=== PATIENT | female | born 1965 | race Caucasian/White ===

== ENCOUNTER 2017-01-27 17:03 | Inpatient (IN) | payer BC ==
[2017-01-27 17:07] VITALS: BMI 37.8
--- NOTE | 2017-01-27 17:47 | PDOC ---
History of Present Illness - General Chief Complaint: Pain, Acute Stated Complaint: ABD PAIN Time Seen by Provider: 01/27/17 17:28 Past History - Past Medical History Allergies/Adverse Reactions: Allergies Allergy/AdvReac Type Severity Reaction Status Date / Time No Known Allergies Allergy Verified 01/27/17 17:04 Cardiac Disorders: Yes (mvp) Thyroid Disease: Yes (hypo) - Surgical History Cholecystectomy: Yes - Psycho/Social/Smoking Cessation Hx Anxiety: No Suicidal Ideation: No Smoking History: Never smoked Have you smoked in the past 12 months: No Information on smoking cessation initiated: No Hx Alcohol Use: No Drug/Substance Use Hx: No Substance Use Type: None *Physical Exam - Vital Signs Last Vital Signs Temp Pulse Resp BP Pulse Ox 97.6 F 82 18 159/77 100 01/27/17 17:04 01/27/17 17:04 01/27/17 17:04 01/27/17 17:04 01/27/17 17:04
--- NOTE | 2017-01-27 17:48 | PDOC ---
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 Her pain is waxing and waning, nonmigrating, ranked 8/10 in intensity. Her pain initially radiated to the back but is now localized to the periumbilical region. She states her pain subsided over the weekend, but today became worse, prompting her to come to the ED for evaluation. No nausea, vomiting, or diarrhea. Bowel movements are normal. No fever or chills. No chest pain or shortness of breath. PCP: Dr. Alberto Chanel She was scheduled for an abdominal US tomorrow morning. <Emerita Tuttle - Last Filed: 01/27/17 21:03> <My Morejon - Last Filed: 01/27/17 21:55> - General Chief Complaint: Pain, Acute Stated Complaint: ABD PAIN Time Seen by Provider: 01/27/17 17:28 Past History <Emerita Tuttle - Last Filed: 01/27/17 21:03> - Past Medical History Cardiac Disorders: Yes (mvp) Thyroid Disease: Yes (hypo) - Surgical History Cholecystectomy: Yes - Psycho/Social/Smoking Cessation Hx Anxiety: No Suicidal Ideation: No Smoking History: Never smoked Have you smoked in the past 12 months: No Information on smoking cessation initiated: No Hx Alcohol Use: No Drug/Substance Use Hx: No Substance Use Type: None <My Morejon - Last Filed: 01/27/17 21:55> - Past Medical History Allergies/Adverse Reactions: Allergies Allergy/AdvReac Type Severity Reaction Status Date / Time No Known Allergies Allergy Verified 01/27/17 17:04 Home Medications: Ambulatory Orders Atenolol [Tenormin -] 25 mg PO DAILY 01/27/17 Levothyroxine [Synthroid -] 112 mcg PO DAILY 01/27/17 Review of Systems - Review of Systems Able to Perform ROS?: Yes Comments:: 01/27/17 18:20 GENERAL/CONSTITUTIONAL: No fever or chills. No weakness. HEAD, EYES, EARS, NOSE AND THROAT: No change in vision. No ear pain or discharge. No sore throat CARDIOVASCULAR: No chest pain or shortness of breath. RESPIRATORY: No cough, wheezing, or hemoptysis. GASTROINTESTINAL: +abdominal pain. No nausea, vomiting, diarrhea or constipation. GENITOURINARY: No dysuria, frequency, or change in urination. MUSCULOSKELETAL: No joint or muscle swelling or pain. No neck or back pain. SKIN: No rash NEUROLOGIC: No headache, vertigo, loss of consciousness, or change in strength/ sensation. ENDOCRINE: No increased thirst. No abnormal weight change. HEMATOLOGIC/LYMPHATIC: No anemia, easy bleeding, or history of blood clots. ALLERGIC/IMMUNOLOGIC: No hives or skin allergy. <Emerita Tuttle - Last Filed: 01/27/17 21:03> *Physical Exam - Vital Signs Last Vital Signs Temp Pulse Resp BP Pulse Ox 97.6 F 82 18 159/77 100 01/27/17 17:04 01/27/17 17:04 01/27/17 17:04 01/27/17 17:04 01/27/17 17:04 - Physical Exam Comments: 01/27/17 18:21 GENERAL: Awake, alert, and fully oriented, in no acute distress HEAD: No signs of trauma EYES: PERRLA, EOMI, sclera anicteric, conjunctiva clear ENT: Auricles normal inspection, hearing grossly normal, nares patent, oropharynx clear without exudates. Moist mucosa NECK: Normal ROM, supple, no lymphadenopathy, JVD, or masses LUNGS: Breath sounds equal, clear to auscultation bilaterally. No wheezes, and no crackles HEART: Regular rate and rhythm, normal S1 and S2, no murmurs, rubs or gallops ABDOMEN: +periumbilical and suprapubic tenderness. Soft, normoactive bowel sounds. No guarding, no rebound. No masses EXTREMITIES: Normal range of motion, no edema. No clubbing or cyanosis. No cords, erythema, or tenderness NEUROLOGICAL: Cranial nerves II through XII grossly intact. Normal speech, normal gait SKIN: Warm, Dry, normal turgor, no rashes or lesions noted. <Emerita Tuttle - Last Filed: 01/27/17 21:03> - Vital Signs Last Vital Signs Temp Pulse Resp BP Pulse Ox 97.6 F 82 18 159/77 100 01/27/17 17:04 01/27/17 17:04 01/27/17 17:04 01/27/17 17:04 01/27/17 17:04 <My Morejon - Last Filed: 01/27/17 21:55> ED Treatment Course - LABORATORY CBC & Chemistry Diagram: 01/27/17 18:06 01/27/17 18:06 <Emerita Tuttle - Last Filed: 01/27/17 21:03> - LABORATORY CBC & Chemistry Diagram: 01/27/17 18:06 01/27/17 18:06 <My Morejon - Last Filed: 01/27/17 21:55> Medical Decision Making - Medical Decision Making 01/27/17 21:[address] Pool, who admits for patient's PCP Dr. Chanel. Agrees to admission and requests Dr. Rivas for surgical consult. Placed call to Dr. Rivas at [phone]. Awaiting call back. <Emerita Tuttle - Last Filed: 01/27/17 21:03> - Medical Decision Making 01/27/17 21:47 51-year-old female presents with sudden periumbilical pain that started this afternoon. No diarrhea or vomiting. No fever or chills. Past medical history significant for cholecystectomy in the remote past. On exam, she has periumbilical tenderness and requesting pain meds -Reviewed and she has a mild leukocytosis CAT scan, however, was concerning for a distended fluid-filled small bowel loops in the upper pelvis associated mesenteric edema There is several small foci of air noted in the same region. There is concern for acute ischemia versus a localized pneumoperitoneum. Also alternatively, they were concerned about a perforated diverticulosis. There was minimal sigmoid wall thickening, which could be due to acute diverticulitis The patient was given IV Levaquin and Flagyl, lactic acid was sent Surgical consultation with Dr. Bridger Rivas requested the patient be placed on nothing by mouth, fluid resuscitation Dr. Pool was informed and requested the patient be sent to the unit. I spoke with the covering [employer] who accepted the case. <My Morejon - Last Filed: 01/27/17 21:55> *DC/Admit/Observation/Transfer - Attestations Scribe Attestion: 01/27/17 18:24 Documentation prepared by Emerita Tuttle, acting as medical liaison for My Morejon MD. <Emerita Tuttle - Last Filed: 01/27/17 21:03> - Discharge Dispostion Admit: Yes <My Morejon - Last Filed: 01/27/17 21:55> Diagnosis at time of Disposition: Abdominal pain Qualifiers: Abdominal location: periumbilical Qualified Code(s): R10.33 - Periumbilical pain - Discharge Dispostion Condition at time of disposition: Stable - Referrals Referrals: Alberto Chanel MD [Primary Care Provider] -
[2017-01-27] MEDS ORDERED: MAG HYDROX/AL HYDROX/SIMETH 30 ML UNIT-DOSE CUP PO ONE (17:50)
[2017-01-27] MEDS ORDERED: RANITIDINE HCL 150 MG TABLET (FP) PO ONE (17:51)
[2017-01-27] MEDS ORDERED: MAG HYDROX/AL HYDROX/SIMETH 30 ML UNIT-DOSE CUP ONE (18:08)
[2017-01-27] MEDS ORDERED: RANITIDINE HCL 150 MG TABLET (FP) ONE (18:08)
[2017-01-27 18:22] LABS: BASOPHIL 0.3 % (0-2.0); EOSINOPHIL 0.9 % (0-4.5); MCH 28.6 pg (25.7-33.7); MCHC 32.9 g/dl (32.0-36.0); MEAN CELL VOLUME 86.8 fl (80-96); MEAN PLT VOLUME 7.3 fl (7.5-11.1); NEUTROPHILS 86.2 % (42.8-82.8); PLATELET COUNT 356 K/MM3 (134-434); RDW 13.6 % (11.6-15.6); WHITE BLOOD COUNT 10.1 K/mm3 (4.0-10.0)
[2017-01-27 18:51] LABS: ALBUMIN 3.5 g/dl (3.4-5.0); ANION GAP 7 (8-16); CALCIUM 9.3 mg/dL (8.5-10.1); CO2 26 mmol/L (21-32); CREATININE 0.8 mg/dL (0.55-1.02); GLUCOSE,RANDOM 100 mg/dL (74-106); SGOT/AST 23 U/L (15-37); SGPT/ALT 53 U/L (12-78)
[2017-01-27 18:53] LABS: ALK PHOS 158 U/L (45-117); BILIRUBIN,TOTAL 0.3 mg/dL (0.2-1.0); TOT PROT 6.6 g/dl (6.4-8.2)
[2017-01-27] MEDS ORDERED: SODIUM CHLORIDE 1,000 ML IV STA (19:42)
[2017-01-27] MEDS ORDERED: HYDROmorphone HCL CARPU-JECT 1 MG/1 ML DISP.SYRIN IVPUSH ONE ×2 (19:42→21:41)
[2017-01-27] MEDS ORDERED: HYDROmorphone HCL CARPU-JECT 1 MG/1 ML DISP.SYRIN ONE ×2 (19:46→21:37)
[2017-01-27] MEDS ORDERED: LEVOFLOXACIN 500 MG IVPB 100 ML IVPB ONE ×2 (21:08→21:16)
[2017-01-27] MEDS ORDERED: METRONIDAZOLE 500 MG PREMIXED 100 ML IVPB ONE ×2 (21:08→21:16)
[2017-01-27] MEDS ORDERED: SODIUM CHLORIDE 1,000 ML IV SCH ×2 (21:45→22:15)
[2017-01-27] MEDS ORDERED: HYDROmorphone HCL CARPU-JECT 1 MG/1 ML DISP.SYRIN IVPB PRN (21:59)
[2017-01-27] MEDS ORDERED: ONDANSETRON 4 MG/2 ML VIAL IVPB PRN (21:59)
[2017-01-27] MEDS ORDERED: METOPROLOL TARTRATE 5 MG/5 ML VIAL IVPUSH PRN (22:04)
--- NOTE | 2017-01-27 23:52 | CONSULT ---
Consult Consult Specialty:: Pulm/CCM Reason for Consultation:: Acute periumbilical abd pain - History of Present Illness Chief Complaint: Acute abd pain History of Present Illness: 51yow with PMHx of HTN, hypothyroidim, mitral valve prolapse, s/p cholecystectomy in distant past who presented to the ED c/odette approximately 5 days of waxing and waning periumbilical pain. As per previous note the pain initially radiated to the back but is now localized to the periumbilical region. She states her pain subsided over the weekend, but today became worse, prompting her to come to the ED for evaluation. She denied fever, chills, nausea , vomiting, or diarrhea, chest pain or SOB. Had BM x1 loose non bloody today. Labs notable for WBC 10, alk phos 158, Lipase [address] scan abd/ pelvis significant for distended fluid filled small bowel loops with associated mesentary edema and small foci of air c/facute ischemia versus a localized pneumoperitoneum. She was started on flagyl. Surgery Dr Rivas was consulted. She was transferred to ICU for further management. Rec'd in ICU A+O x3 T 99, BP 120/76, HR 91, O2 sat 99% on room air with c/o 8/ 10 periumbilical pain which radiates laterally. Abd soft with some guarding. no rebound tenderness. No periumbilical discoloration noted. Kept NPO with NS IVF. - History Source History Provided By: Patient Limitations to Obtaining History: No Limitations - Past Medical History Cardio/Vascular: Yes: Other (Mitral valve prolapse) ...LMP Comment: about 1 year ago ...: No (menopause) Endocrine: Yes: Hypothyroidism - Past Surgical History Past Surgical History: Yes: Cholecystectomy, Tubal Ligation - Alcohol/Substance Use Hx Alcohol Use: No - Smoking History Smoking history: Never smoked Have you smoked in the past 12 months: No - Social History Usual Living Arrangement: With Spouse ADL: Independent Home Medications - Allergies Allergies/Adverse Reactions: Allergies Allergy/AdvReac Type Severity Reaction Status Date / Time No Known Allergies Allergy Verified 01/27/17 17:04 - Home Medications Home Medications: Ambulatory Orders Atenolol [Tenormin -] 25 mg PO DAILY 01/27/17 Levothyroxine [Synthroid -] 112 mcg PO DAILY 01/27/17 Family Disease History - Family Disease History Family History: Unremarkable Review of Systems - Review of Systems Constitutional: reports: No Symptoms Eyes: reports: No Symptoms HENT: reports: No Symptoms Neck: reports: No Symptoms Cardiovascular: reports: No Symptoms Respiratory: reports: No Symptoms Gastrointestinal: reports: Abdominal Pain Genitourinary: reports: No Symptoms Neurological: reports: No Symptoms Endocrine: reports: No Symptoms Hematology/Lymphatic: reports: No Symptoms Psychiatric: reports: No Symptoms Pain Intensity: 8 Physical Exam Vital Signs: Vital Signs Temperature 99 F 01/27/17 23:20 Pulse Rate 96 H 01/27/17 23:20 Respiratory Rate 26 H 01/27/17 23:20 Blood Pressure 136/89 01/27/17 23:20 O2 Sat by Pulse Oximetry (%) 98 01/27/17 23:20 Constitutional: Yes: Obese Eyes: Yes: WNL HENT: Yes: Normocephalic Neck: Yes: WNL Cardiovascular: Yes: Regular Rate and Rhythm Respiratory: Yes: Regular, CTA Bilaterally Gastrointestinal: Yes: Soft, Abdomen, Obese Edema: No Peripheral Pulses WNL: Yes Neurological: Yes: WNL, Alert, Oriented ...Motor Strength: WNL Psychiatric: Yes: WNL Labs: CBC,CMP WBC 10.1 K/mm3 (4.0-10.0) H D 01/27/17 18:06 RBC 4.31 M/mm3 (3.60-5.2) 01/27/17 18:06 Hgb 12.3 GM/dL (10.7-15.3) D 01/27/17 18:06 Hct 37.4 % (32.4-45.2) 01/27/17 18:06 MCV 86.8 fl (80-96) 01/27/17 18:06 MCH 28.6 pg (25.7-33.7) 01/27/17 18:06 MCHC 32.9 g/dl (32.0-36.0) 01/27/17 18:06 RDW 13.6 % (11.6-15.6) 01/27/17 18:06 Plt Count 356 K/MM3 (134-434) D 01/27/17 18:06 MPV 7.3 fl (7.5-11.1) L 01/27/17 18:06 Neutrophils % 86.2 % (42.8-82.8) H D 01/27/17 18:06 Lymphocytes % 9.8 % (8-40) D 01/27/17 18:06 Monocytes % 2.8 % (3.8-10.2) L 01/27/17 18:06 Eosinophils % 0.9 % (0-4.5) 01/27/17 18:06 Basophils % 0.3 % (0-2.0) 01/27/17 18:06 ESR 10 mm/hr (0-30) 01/27/17 22:07 Sodium 140 mmol/L (136-145) 01/27/17 18:06 Potassium 4.3 mmol/L (3.5-5.1) 01/27/17 18:06 Chloride 107 mmol/L (98-107) 01/27/17 18:06 Carbon Dioxide 26 mmol/L (21-32) 01/27/17 18:06 Anion Gap 7 (8-16) L 01/27/17 18:06 BUN 15 mg/dL (7-18) 01/27/17 18:06 Creatinine 0.8 mg/dL (0.55-1.02) 01/27/17 18:06 Creat Clearance w eGFR > 60 (>60) 01/27/17 18:06 Random Glucose 100 mg/dL (74-106) 01/27/17 18:06 Lactic Acid 1.3 mmol/L (0.4-2.0) 01/27/17 21:35 Calcium 9.3 mg/dL (8.5-10.1) 01/27/17 18:06 Total Bilirubin 0.3 mg/dL (0.2-1.0) D 01/27/17 18:06 AST 23 U/L (15-37) D 01/27/17 18:06 ALT 53 U/L (12-78) D 01/27/17 18:06 Alkaline Phosphatase 158 U/L (45-117) H D 01/27/17 18:06 Total Protein 6.6 g/dl (6.4-8.2) 01/27/17 18:06 Albumin 3.5 g/dl (3.4-5.0) 01/27/17 18:06 Lipase 65 U/L (73-393) L 01/27/17 18:06 Serum , Qual Negative 01/27/17 20:08 Imaging - Results Chest X-ray: Image Reviewed (clear in all wills) Cat Scan: Report Reviewed (? pneumoperitoneum; diverticulosis and colonic wall thickening) Problem List - Problems (1) Abdominal pain Code(s): R10.9 - UNSPECIFIED ABDOMINAL PAIN Qualifiers: Abdominal location: periumbilical Qualified Code(s): R10.33 - Periumbilical pain Assessment/Plan 51yow with PMHx of HTN, hypothyroidim, mitral valve prolapse, s/p cholecystectomy in distant past who presented to the ED c/o approximately 5 days of waxing and waning periumbilical pain. As per previous note the pain initially radiated to the back but is now localized to the periumbilical region. Unclear intrabdominal process with c/f pancreatitis vs mesenteric ischemia vs diverticulosis. Surgery consulted. Plan: -Maintain NPO with IVF -Pain management with dilaudid -Continue empiric antibiotics -trend CBC and lactate
[2017-01-28] MEDS ORDERED: HYDROmorphone HCL CARPU-JECT 1 MG/1 ML DISP.SYRIN ONE (00:09)
[2017-01-28] MEDS ORDERED: METRONIDAZOLE 500 MG PREMIXED 100 ML IVPB SCH ×2 (02:00)
[2017-01-28] MEDS ORDERED: HYDROmorphone HCL CARPU-JECT 1 MG/1 ML DISP.SYRIN IVPB PRN (03:09)
[2017-01-28] MEDS ORDERED: METOPROLOL TARTRATE 5 MG/5 ML VIAL IVPUSH PRN (03:09)
[2017-01-28] MEDS ORDERED: SODIUM CHLORIDE 1,000 ML IV SCH (03:15)
[2017-01-28] MEDS: ONDANSETRON 4 MG/2 ML VIAL IVPB PRN ×3 (03:23→18:06)
[2017-01-28] MEDS: ACETAMINOPHEN 1000 MG/100 ML VIAL (NON FORMULARY) IVPB PRN ×3 (03:30→17:03)
--- NOTE | 2017-01-28 08:11 | CONSULT ---
Consult Consult Specialty:: Surgery Reason for Consultation:: Abdominal pain - History of Present Illness Chief Complaint: Abdominal pain History of Present Illness: 51 female presents to the hospital for acute onset of abdominal pain States that 5 days prior she had developed periumbilical pain Had somewhat resolved but yesterday had become severe Pain was to the right of the umbilicus and radiated to the pelvis No prior colonoscopy Denies fevers/chills + Diarrhea - History Source History Provided By: Patient, Medical Record Limitations to Obtaining History: No Limitations - Past Medical History Cardio/Vascular: Yes: Other (Mitral valve prolapse) ...LMP Comment: about 1 year ago ...: No (menopause) Endocrine: Yes: Hypothyroidism - Past Surgical History Past Surgical History: Yes: Cholecystectomy, Tubal Ligation - Alcohol/Substance Use Hx Alcohol Use: No - Smoking History Smoking history: Never smoked Have you smoked in the past 12 months: No - Social History Usual Living Arrangement: With Spouse ADL: Independent Home Medications - Allergies Allergies/Adverse Reactions: Allergies Allergy/AdvReac Type Severity Reaction Status Date / Time No Known Allergies Allergy Verified 01/27/17 17:04 - Home Medications Home Medications: Ambulatory Orders Atenolol [Tenormin -] 25 mg PO DAILY 01/27/17 Levothyroxine [Synthroid -] 112 mcg PO DAILY 01/27/17 Family Disease History - Family Disease History Family History: Unremarkable Review of Systems - Review of Systems Constitutional: denies: Chills, Fever Eyes: reports: No Symptoms HENT: reports: No Symptoms Neck: reports: No Symptoms Cardiovascular: denies: Chest Pain Respiratory: denies: Cough Gastrointestinal: reports: Abdominal Pain, Diarrhea. denies: Nausea, Vomiting Genitourinary: reports: No Symptoms Neurological: denies: Change in LOC Pain Intensity: 6 Physical Exam Vital Signs: Vital Signs Temperature 99 F 01/27/17 23:20 Pulse Rate 68 01/28/17 06:00 Respiratory Rate 15 01/28/17 06:00 Blood Pressure 106/66 01/28/17 06:00 O2 Sat by Pulse Oximetry (%) 98 01/27/17 23:20 Constitutional: Yes: Calm Eyes: Yes: WNL HENT: Yes: WNL Neck: Yes: Supple Cardiovascular: Yes: Regular Rate and Rhythm Respiratory: Yes: CTA Bilaterally Gastrointestinal: Yes: Soft, Tenderness (Mild right periumbilical tenderness, suprapubic/LLQ tenderness). No: Distention, Tenderness, Rebound Extremities: Yes: WNL Neurological: Yes: Alert Labs: CBC, BMP 01/27/17 18:06 01/27/17 18:06 Imaging - Results Cat Scan: Report Reviewed, Image Reviewed Problem List - Problems (1) Abdominal pain Code(s): R10.9 - UNSPECIFIED ABDOMINAL PAIN Qualifiers: Abdominal location: periumbilical Qualified Code(s): R10.33 - Periumbilical pain Assessment/Plan 51 female with acute onset of abdominal pain Pain somewhat improved Possible etiologies include mesenteric ischemia, diverticulitis, enteritis, infectious/inflammatory colitis No large free air noted Very small right periumbilical hernia seen on CT as well Lactate WNL: 1.3 Stool for culture, C Diff NPO IV fluid resuscitation Antibiotics Serial abdominal exams
[2017-01-28 08:52] LABS: BASOPHIL 0.4 % (0-2.0); EOSINOPHIL 0.3 % (0-4.5); MCH 29.1 pg (25.7-33.7); MCHC 33.4 g/dl (32.0-36.0); MEAN CELL VOLUME 87.1 fl (80-96); MEAN PLT VOLUME 6.8 fl (7.5-11.1); PLATELET COUNT 269 K/MM3 (134-434); RDW 13.6 % (11.6-15.6); WHITE BLOOD COUNT 10.9 K/mm3 (4.0-10.0)
--- NOTE | 2017-01-28 08:58 | CONSULT ---
Consult Consult Specialty:: Infectious disease Reason for Consultation:: distended fluid filled small bowel loops with associated mesentary edema and small foci of air c/facute ischemia versus a localized pneumoperitoneum - History of Present Illness Chief Complaint: Periumbilical pain X4 days History of Present Illness: The patient is a 51 year old F S/P cholecystectomy,hiatal hernia repair over 20 years ago presenting with a 4 day history of periumbilical pain. Started on IV flagyl yesterday for differential diagnosis of mesenteric ischemia, diverticulitis, enteritis, infectious/inflammatory colitis. Pain was sharp in nature, radiating to the back, relieved for two days after using a lidocaine patch overnight on . There was no associated fever but she had chills, no nausea or vomiting. No constipation or diarrhea. Yesterday, the pain resumed suddenly, at the periumbilical region and was a 10/10 not relieved by change in position. The pain was not relieved by passing urine or stool. She had one episode of loose stools, non bloody, no mucus, which was greenish in color (had eaten vegetables) just prior to onset of the pain yesterday. The pain was colicky in nature and radiated to the suprapubic region, right and left hypochondrial regions, and was associated with supraumbilical swelling. No dysuria, or flank pain, or hematuria, no vaginal discharge. One hour after the onset of the pain yesterday, she presented in the emergency department with a 10 /10 and was given IV Fluids, flagyl and levofloxacin and is on NPO. Her pain is currently 6/10. - History Source History Provided By: Patient Limitations to Obtaining History: No Limitations - Past Medical History Cardio/Vascular: Yes: Other (Mitral valve prolapse) Gastrointestinal: Yes: Other (Occassioanl acid reflux, relieved by position) ...LMP Comment: about 1 year ago ...: No (menopause) Endocrine: Yes: Hypothyroidism - Past Surgical History Past Surgical History: Yes: Cholecystectomy (Had gall bladder removal about 23 years ago), Tubal Ligation - Alcohol/Substance Use Hx Alcohol Use: No - Smoking History Smoking history: Never smoked Have you smoked in the past 12 months: No - Social History Usual Living Arrangement: With Spouse ADL: Independent Home Medications - Allergies Allergies/Adverse Reactions: Allergies Allergy/AdvReac Type Severity Reaction Status Date / Time No Known Allergies Allergy Verified 01/27/17 17:04 - Home Medications Home Medications: Ambulatory Orders Atenolol [Tenormin -] 25 mg PO DAILY 01/27/17 Levothyroxine [Synthroid -] 112 mcg PO DAILY 01/27/17 Family Disease History - Family Disease History Family Disease History: Heart Disease: Father (HTN, Afib, Alzheimers, 4 years ago), Mother (diverticulosis, COPD,Pulm HTN 6 months ago), Respiratory: Mother, Other: Father, Mother Review of Systems - Review of Systems Constitutional: denies: Chills, Fever, Loss of Appetite, Weakness Eyes: denies: Blurred Vision HENT: denies: Difficult Swallowing, Throat Pain, Ringing in Ears Neck: reports: Lumps (Has fullness of the neck bilaterally with background Moisés's throiditis and a thyroid nodule) Cardiovascular: denies: Chest Pain, Edema, Palpitations, Shortness of Breath Respiratory: reports: Cough (Started yesterday, non productive). denies: Hemoptysis, SOB Genitourinary: denies: Dysuria, Flank Pain Musculoskeletal: denies: Joint Swelling Integumentary: denies: Bruising Psychiatric: denies: Anxiety, Depression Physical Exam Vital Signs: Vital Signs Temperature 99 F 01/27/17 23:20 Pulse Rate 74 01/28/17 08:00 Respiratory Rate 15 01/28/17 08:00 Blood Pressure 122/81 01/28/17 08:00 O2 Sat by Pulse Oximetry (%) 97 01/28/17 08:00 Constitutional: Yes: Calm, Obese Eyes: Yes: EOM Intact. No: Sclera Icterus HENT: No: Nasal Congestion, Rhinnorhea, Tonsillar Exudate Neck: Yes: Thyromegaly (Bilateral neck swelling). No: Tenderness Cardiovascular: Yes: S1, S2. No: Tachycardia Gastrointestinal: Yes: Normal Bowel Sounds, Abdomen, Obese, Tenderness, Rebound (moderate tenderness over the suprapubic region, mild tenderness over both R and L hypochondrial areas. Rebound tenderness not clear. Psoas sign also not clear). No: Distention, Palpable Mass, Tenderness, Epigastrium ...Rectal Exam: Yes: Deferred Renal/: No: CVA Tenderness - Left, CVA Tenderness - Right, Samuels Present Musculoskeletal: Yes: Other (Has a history of a fall on her back with protruding discs, but no disc protrusions on palpation). No: Back Pain Extremities: Yes: Other (Obese with large lower limbs) Edema: No Peripheral Pulses WNL: Yes Neurological: Yes: Alert, Oriented. No: Aphasia, Confusion, Facial Droop, Lethargy ...Motor Strength: WNL, LUE, LLE, RUE, RLE Psychiatric: Yes: Alert, Oriented. No: Agitated Imaging - Results Cat Scan: Other (CT scan of abdomen pelvis: Queries acute diverticulitis, R/O perforated diverticulosis,or colitis) Problem List - Problems (1) Acute diverticulitis Assessment/Plan: Acute diverticulitis with rupture and localized pnuemoperitoneum R/O Merkels diverticulum Code(s): K57.92 - DVTRCLI OF INTEST, PART UNSP, W/O PERF OR ABSCESS W/O BLEED (2) Small bowel obstruction Assessment/Plan: Inflammed small bowel on imaging Code(s): K56.69 - OTHER INTESTINAL OBSTRUCTION (3) Status post cholecystectomy Assessment/Plan: 20 years post cholecystectomy Code(s): Z90.49 - ACQUIRED ABSENCE OF OTHER SPECIFIED PARTS OF DIGESTIVE TRACT Assessment/Plan Acute diverticulitis one day on i.v flagyl and levofloxacin getting i.v acetaminophen some improvement Plan blood cultures urine cultures Continue Iv Flagyl and levofloxacin Visit type - Emergency Visit Emergency Visit: No - New Patient This patient is new to me today: Yes Date on this admission: 01/28/17 - Critical Care Critical Care patient: No
[2017-01-28] MEDS: SODIUM CHLORIDE 1,000 ML IV SCH ×2 (09:00→21:54)
[2017-01-28 09:23] LABS: ANION GAP 8 (8-16); CALCIUM 8.2 mg/dL (8.5-10.1); CO2 28 mmol/L (21-32); CREATININE 0.6 mg/dL (0.55-1.02); GLUCOSE,RANDOM 110 mg/dL (74-106)
[2017-01-28] MEDS: METRONIDAZOLE 500 MG PREMIXED 100 ML IVPB SCH ×2 (09:32→17:04)
[2017-01-28] MEDS: LEVOFLOXACIN 500 MG IVPB 100 ML IVPB SCH (09:36)
[2017-01-28] MEDS ORDERED: PANTOPRAZOLE SODIUM 40 MG/100 ML PRE-DOCKED IVPB SCH (10:00)
[2017-01-28] MEDS ORDERED: PANTOPRAZOLE SODIUM 40 MG in SODIUM CHLORIDE 100 ML IVPB SCH (10:00)
[2017-01-28] MEDS ORDERED: LEVOFLOXACIN 500 MG IVPB 100 ML IVPB SCH ×2 (10:00)
[2017-01-28] MEDS: PANTOPRAZOLE SODIUM 40 MG/100 ML PRE-DOCKED IVPB SCH (11:16)
--- NOTE | 2017-01-28 11:27 | PN ---
Teaching Attending Note Name of Resident: Luis Lim ATTENDING PHYSICIAN STATEMENT I saw and evaluated the patient. I reviewed the resident's note and discussed the case with the resident. I agree with the resident's findings and plan as documented. SUBJECTIVE: Pt seen and examined in the ICU. States abdominal pain is improving. No fevers but with chills overnight. No nausea, vomiting. OBJECTIVE: Last Vital Signs Temp Pulse Resp BP Pulse Ox 98.0 F 76 18 112/70 99 01/28/17 10:00 01/28/17 10:00 01/28/17 10:00 01/28/17 10:00 01/28/17 09:00 Intake & Output 01/25/17 01/26/17 01/27/17 01/28/17 23:59 23:59 23:59 23:59 Intake Total 950 Balance 950 Weight 245 lb 2.464 oz 245 lb 2.464 oz Gen: NAD at rest Heart: RRR Lung: right base rales Abd: soft, mild TTP periumbilical region, no rebound or guarding Ext: no edema CBC, BMP 01/28/17 08:35 01/28/17 08:35 Active Medications Acetaminophen (Ofirmev Injection -) 1,000 mg IVPB Q6H PRN PRN Reason: FEVER OR PAIN Stop: 01/28/17 16:00 Last Admin: 01/28/17 09:28 Dose: 1,000 mg Enoxaparin Sodium (Lovenox -) 40 mg SQ DAILY CRISTY Hydromorphone HCl (Dilaudid Injection -) 1 mg IVPB Q4H PRN PRN Reason: PAIN Last Admin: 01/28/17 08:14 Dose: 1 mg Metronidazole (Flagyl 500mg Premixed Ivpb -) 100 mls @ 100 mls/hr IVPB Q8H-IV CRISTY Last Admin: 01/28/17 09:32 Dose: 100 mls/hr Levofloxacin (Levaquin 500 Mg Premixed Ivpb -) 100 mls @ 100 mls/hr IVPB DAILY CRISTY Last Admin: 01/28/17 09:36 Dose: 100 mls/hr Sodium Chloride (Normal Saline -) 1,000 mls @ 150 mls/hr IV ASDIR CRISTY Last Admin: 01/28/17 09:00 Dose: 150 mls/hr Metoprolol Tartrate (Lopressor Injection -) 5 mg IVPUSH Q4H PRN PRN Reason: HYPERTENSION Ondansetron HCl (Zofran Injection) 4 mg IVPB Q4H PRN PRN Reason: NAUSEA AND/OR VOMITING Last Admin: 01/28/17 03:23 Dose: 4 mg Pantoprazole Sodium (Protonix 40mg Ivpb (Pre-Docked)) 40 mg IVPB DAILY CRISTY Last Admin: 01/28/17 11:16 Dose: 40 mg ASSESSMENT AND PLAN: Abdominal Pain r/o Diverticulitis HTN Hypothyroidism Mitral Valve Prolapse - continue empiric antibiotics - f/u cultures - serial abdominal exams - pain control - incentive spirometry - NPO - IVF - surgery f/u - DVT prophylaxis
--- NOTE | 2017-01-28 11:52 | PN ---
Teaching Attending Note Name of Resident: Nu Villegas ATTENDING PHYSICIAN STATEMENT I saw and evaluated the patient. I reviewed the resident's note and discussed the case with the resident. I agree with the resident's findings and plan as documented. SUBJECTIVE: Chart reviewed, pt seen CT reviewed with radiologist OBJECTIVE: Awake, alert No acute distress Afebrile Cor S1S2 Lungs clear abdomen hypoactive BS soft, mild periumbilical tenderness ASSESSMENT AND PLAN: Possible perforated diverticulum colonic v. Meckel's Possible ileus v. SBO Await c/s Continue empiric levaquin/ flagyl
[2017-01-28] MEDS: ENOXAPARIN NA (PORCINE) 40 MG/0.4 ML DISP.SYRIN SQ SCH (12:09)
--- NOTE | 2017-01-28 12:26 | CONSULT ---
Consult Consult Specialty:: endocrine Reason for Consultation:: hypothyroidism - History of Present Illness Chief Complaint: abdominal pain History of Present Illness: 51yow with PMHx of HTN, hypothyroidim, mitral valve prolapse, s/p cholecystectomy in distant past who presented to the ED c/odette approximately 5 days of waxing and waning periumbilical pain.has weakness,nausea pain severe requiring pain medication - Past Medical History Cardio/Vascular: Yes: Other (Mitral valve prolapse) Gastrointestinal: Yes: Other (Occassioanl acid reflux, relieved by position) ...LMP Comment: about 1 year ago ...: No (menopause) Endocrine: Yes: Hypothyroidism - Past Surgical History Past Surgical History: Yes: Cholecystectomy (Had gall bladder removal about 23 years ago), Tubal Ligation - Alcohol/Substance Use Hx Alcohol Use: No - Smoking History Smoking history: Never smoked Have you smoked in the past 12 months: No - Social History Usual Living Arrangement: With Spouse ADL: Independent Home Medications - Allergies Allergies/Adverse Reactions: Allergies Allergy/AdvReac Type Severity Reaction Status Date / Time No Known Allergies Allergy Verified 01/27/17 17:04 - Home Medications Home Medications: Ambulatory Orders Atenolol [Tenormin -] 25 mg PO DAILY 01/27/17 Levothyroxine [Synthroid -] 112 mcg PO DAILY 01/27/17 Family Disease History - Family Disease History Family Disease History: Heart Disease: Father (HTN, Afib, Alzheimers, 4 years ago), Mother (diverticulosis, COPD,Pulm HTN 6 months ago), Respiratory: Mother, Other: Father, Mother Review of Systems - Review of Systems Constitutional: reports: Lethargy, Malaise Eyes: reports: No Symptoms HENT: reports: No Symptoms Neck: reports: No Symptoms Cardiovascular: reports: No Symptoms Respiratory: reports: Exercise Intolerance, SOB Genitourinary: reports: No Symptoms Breasts: reports: No Symptoms Reported Musculoskeletal: reports: No Symptoms Endocrine: reports: No Symptoms Hematology/Lymphatic: reports: No Symptoms Psychiatric: reports: No Symptoms Physical Exam Vital Signs: Vital Signs Temperature 98.0 F 01/28/17 10:00 Pulse Rate 77 01/28/17 12:00 Respiratory Rate 17 01/28/17 12:00 Blood Pressure 124/77 01/28/17 12:00 O2 Sat by Pulse Oximetry (%) 99 01/28/17 09:00 Constitutional: Yes: Anxious Eyes: Yes: EOM Intact HENT: Yes: Normocephalic Neck: Yes: Trachea Midline, Thyromegaly Cardiovascular: Yes: Regular Rate and Rhythm Respiratory: Yes: CTA Bilaterally Gastrointestinal: Yes: Hypoactive Bowel Sounds, Tenderness, Epigastrium ...Rectal Exam: Yes: Deferred Renal/: Yes: WNL Breast(s): Yes: WNL Musculoskeletal: Yes: WNL Extremities: Yes: WNL Peripheral Pulses WNL: No ...Motor Strength: WNL Psychiatric: Yes: Alert, Oriented Labs: CBC, BMP 01/28/17 08:35 01/28/17 08:35 Problem List - Problems (1) Abdominal pain Code(s): R10.9 - UNSPECIFIED ABDOMINAL PAIN Qualifiers: Abdominal location: periumbilical Qualified Code(s): R10.33 - Periumbilical pain (2) Acute diverticulitis Code(s): K57.92 - DVTRCLI OF INTEST, PART UNSP, W/O PERF OR ABSCESS W/O BLEED (3) Colitis Code(s): K52.9 - NONINFECTIVE GASTROENTERITIS AND COLITIS, UNSPECIFIED (4) Other specified hypothyroidism Code(s): E03.8 - OTHER SPECIFIED HYPOTHYROIDISM Assessment/Plan Current Active Problems Abdominal pain (Acute) Acute diverticulitis (Acute) Colitis (Acute) Status post cholecystectomy (Acute) hyothyridism hasimoto Abnormal Lab Results 01/27/17 01/27/17 01/27/17 18:06 18:06 18:06 WBC 10.1 H D MPV 7.3 L Neutrophils % 86.2 H D Monocytes % 2.8 L Anion Gap 7 L Random Glucose Calcium Alkaline Phosphatase 158 H D Lipase 65 L 01/28/17 01/28/17 08:35 08:35 WBC 10.9 H MPV 6.8 L Neutrophils % 85.0 H Monocytes % 3.6 L Anion Gap Random Glucose 110 H Calcium 8.2 L Alkaline Phosphatase Lipase Laboratory Results - last 24 hr 01/27/17 01/27/17 01/27/17 18:06 18:06 18:06 WBC 10.1 H D RBC 4.31 Hgb 12.3 D Hct 37.4 MCV 86.8 MCH 28.6 MCHC 32.9 RDW 13.6 Plt Count 356 D MPV 7.3 L Neutrophils % 86.2 H D Lymphocytes % 9.8 D Monocytes % 2.8 L Eosinophils % 0.9 Basophils % 0.3 ESR Sodium 140 Potassium 4.3 Chloride 107 Carbon Dioxide 26 Anion Gap 7 L BUN 15 Creatinine 0.8 Creat Clearance w eGFR > 60 Random Glucose 100 Lactic Acid Calcium 9.3 Total Bilirubin 0.3 D AST 23 D ALT 53 D Alkaline Phosphatase 158 H D Total Protein 6.6 Albumin 3.5 Lipase 65 L Serum , Qual 01/27/17 01/27/17 01/27/17 20:08 21:35 22:07 WBC RBC Hgb Hct MCV MCH MCHC RDW Plt Count MPV Neutrophils % Lymphocytes % Monocytes % Eosinophils % Basophils % ESR 10 Sodium Potassium Chloride Carbon Dioxide Anion Gap BUN Creatinine Creat Clearance w eGFR Random Glucose Lactic Acid 1.3 Calcium Total Bilirubin AST ALT Alkaline Phosphatase Total Protein Albumin Lipase Serum , Qual Negative 01/28/17 01/28/17 08:35 08:35 WBC 10.9 H RBC 3.84 Hgb 11.2 Hct 33.5 MCV 87.1 MCH 29.1 MCHC 33.4 RDW 13.6 Plt Count 269 D MPV 6.8 L Neutrophils % 85.0 H Lymphocytes % 10.7 Monocytes % 3.6 L Eosinophils % 0.3 Basophils % 0.4 ESR Sodium 141 Potassium 4.2 Chloride 105 Carbon Dioxide 28 Anion Gap 8 BUN 8 D Creatinine 0.6 D Creat Clearance w eGFR Random Glucose 110 H Lactic Acid Calcium 8.2 L Total Bilirubin AST ALT Alkaline Phosphatase Total Protein Albumin Lipase Serum , Qual plan; chk tsh free t4 Current Medications Generic Name Dose Route Start Last Admin Trade Name Freq PRN Reason Stop Dose Admin Acetaminophen 1,000 mg 01/27/17 21:59 01/28/17 09:28 Ofirmev Injection - IVPB 01/28/17 16:00 1,000 mg Q6H PRN Administration FEVER OR PAIN Enoxaparin Sodium 40 mg 01/28/17 11:15 01/28/17 12:09 Lovenox - SQ 40 mg DAILY CRISTY Administration Hydromorphone HCl 1 mg 01/28/17 03:09 01/28/17 08:14 Dilaudid Injection - IVPB 1 mg Q4H PRN Administration PAIN Metronidazole 100 mls @ 100 mls/hr 01/28/17 10:00 01/28/17 09:32 Flagyl 500mg Premixed Ivpb - IVPB 100 mls/hr Q8H-IV CRISTY Administration Levofloxacin 100 mls @ 100 mls/hr 01/28/17 10:00 01/28/17 09:36 Levaquin 500 Mg Premixed Ivpb - IVPB 100 mls/hr DAILY CRISTY Administration Sodium Chloride 1,000 mls @ 150 mls/hr 01/28/17 08:15 01/28/17 09:00 Normal Saline - IV 150 mls/hr ASDIR CRISTY Administration Metoprolol Tartrate 5 mg 01/28/17 03:09 Lopressor Injection - IVPUSH Q4H PRN HYPERTENSION Ondansetron HCl 4 mg 01/28/17 03:09 01/28/17 03:23 Zofran Injection IVPB 4 mg Q4H PRN Administration NAUSEA AND/OR VOMITING Pantoprazole Sodium 40 mg 01/28/17 10:00 01/28/17 11:16 Protonix 40mg Ivpb (Pre-Docked) IVPB 40 mg DAILY CRISTY Administration once able to take synthroid resume po synthroid 125mcg
--- NOTE | 2017-01-28 13:10 | PN ---
Physical Exam: SUBJECTIVE: Patient seen and examined at bedside in ICU. Pt is a 51 y/o F with PMH of HTN, hypothyroidism presented to ER with 10/10 mid abdominal pain with sudden onset. She had one episode of non-bloody loose stool yesterday. Denied any N/V/F/C, change in diet, recent travel, sick contacts. Currently feels better with pain rated as a 4-5/10. She has never had this type of pain before and denies any trauma to the area. Surgical hx includes C- section x1, and cholecystectomy 20+ years ago. OBJECTIVE: Vital Signs Temperature 98.0 F 01/28/17 10:00 Pulse Rate 77 01/28/17 12:00 Respiratory Rate 17 01/28/17 12:00 Blood Pressure 124/77 01/28/17 12:00 O2 Sat by Pulse Oximetry (%) 99 01/28/17 09:00 GENERAL: The patient is awake, alert, and fully oriented, in no acute distress. HEAD: Normal with no signs of trauma. EYES: extraocular movements intact, sclera anicteric, conjunctiva clear. No ptosis. ENT: Ears normal, nares patent NECK: Trachea midline LUNGS: Breath sounds equal, clear to auscultation bilaterally, no wheezes HEART: Regular rate and rhythm, S1, S2 without murmur, rub or gallop. ABDOMEN: +periumbilical tenderness, LLQ tenderness, RLQ tenderness, Soft, nondistended, normoactive bowel sounds, no guarding, no rebound EXTREMITIES: warm, well-perfused NEUROLOGICAL: Cranial nerves II through XII grossly intact. Normal speech, gait not observed. PSYCH: Normal mood, normal affect. SKIN: Warm, dry Laboratory Results - last 24 hr 01/27/17 01/28/17 01/28/17 22:07 08:35 08:35 WBC 10.9 H RBC 3.84 Hgb 11.2 Hct 33.5 MCV 87.1 MCH 29.1 MCHC 33.4 RDW 13.6 Plt Count 269 D MPV 6.8 L Neutrophils % 85.0 H Lymphocytes % 10.7 Monocytes % 3.6 L Eosinophils % 0.3 Basophils % 0.4 ESR 10 Sodium 141 Potassium 4.2 Chloride 105 Carbon Dioxide 28 Anion Gap 8 BUN 8 D Creatinine 0.6 D Random Glucose 110 H Calcium 8.2 L Imaging: CT abd/pelvis: IMPRESSION: Mildly distended fluid-filled small bowel loops are seen within the upper pelvis centrally with associated mesenteric edema. Several small foci of air are noted in the same region. It is uncertain whether these small foci of abnormal air accumulation are on the basis of intramural air and therefore due to acute ischemia versus representing a localized pneumoperitoneum. The middle third of the sigmoid colon abuts this region. Several diverticula are noted within the sigmoid colon and therefore alternatively the previously described findings could be on the basis of perforated diverticulosis. There is also minimal sigmoid wall thickening which could be due to acute diverticulitis. The previously described mild fluid- filled small bowel distention may be on the basis of an ileus versus mild small bowel obstruction. A small amount of free fluid is seen within the pelvic cul-de -sac and right upper quadrant. Mild splenomegaly. Status post cholecystectomy. Active Medications Generic Name Dose Route Start Last Admin Trade Name Freq PRN Reason Stop Dose Admin Acetaminophen 1,000 mg 01/27/17 21:59 01/28/17 09:28 Ofirmev Injection - IVPB 01/28/17 16:00 1,000 mg Q6H PRN Administration FEVER OR PAIN Enoxaparin Sodium 40 mg 01/28/17 11:15 01/28/17 12:09 Lovenox - SQ 40 mg DAILY CRISTY Administration Hydromorphone HCl 1 mg 01/28/17 03:09 01/28/17 08:14 Dilaudid Injection - IVPB 1 mg Q4H PRN Administration PAIN Metronidazole 100 mls @ 100 mls/hr 01/28/17 10:00 01/28/17 09:32 Flagyl 500mg Premixed Ivpb - IVPB 100 mls/hr Q8H-IV CRISTY Administration Levofloxacin 100 mls @ 100 mls/hr 01/28/17 10:00 01/28/17 09:36 Levaquin 500 Mg Premixed Ivpb - IVPB 100 mls/hr DAILY CRISTY Administration Sodium Chloride 1,000 mls @ 150 mls/hr 01/28/17 08:15 01/28/17 09:00 Normal Saline - IV 150 mls/hr ASDIR CRISTY Administration Metoprolol Tartrate 5 mg 01/28/17 03:09 Lopressor Injection - IVPUSH Q4H PRN HYPERTENSION Ondansetron HCl 4 mg 01/28/17 03:09 01/28/17 03:23 Zofran Injection IVPB 4 mg Q4H PRN Administration NAUSEA AND/OR VOMITING Pantoprazole Sodium 40 mg 01/28/17 10:00 01/28/17 11:16 Protonix 40mg Ivpb (Pre-Docked) IVPB 40 mg DAILY CRISTY Administration ASSESSMENT/PLAN: 51 y/o F with PMH of HTN, hypothyroidism presented to ER with 10/10 mid abdominal pain with sudden onset. Admitted to ICU w/possible etiologies include mesenteric ischemia, diverticulitis, enteritis, infectious/inflammatory colitis on CT. Neuro: Mental status intact Abd: Abdominal pain secondary to possibly mesenteric ischemia, diverticulitis, enteritis, infectious/inflammatory colitis -Surgery on board, ID on board -f/u C. Diff, stool cultures -c/w levaquin and flagyl -pain control w/dilaudid 1mg IVPB q4h PRN for pain and Ofirmev 1g IV q6h PRN -NS @ 150 ml/hr -Protonix 40 mg IVPB qd Endocrine Hypothyroidism -c/w synthroid 150 mcg po qd once able to tolerate PO Cardio HTN -c/w lopressor 5 mg IV q4h prn for htn Prophylaxis -DVT: lovenox 40 mg sq qd -GI: Protonix 40 mg IV qd Dispo: continue to monitor in ICU Problem List - Problems (1) Abdominal pain Code(s): R10.9 - UNSPECIFIED ABDOMINAL PAIN Qualifiers: Abdominal location: periumbilical Qualified Code(s): R10.33 - Periumbilical pain (2) Acute diverticulitis Code(s): K57.92 - DVTRCLI OF INTEST, PART UNSP, W/O PERF OR ABSCESS W/O BLEED (3) Colitis Code(s): K52.9 - NONINFECTIVE GASTROENTERITIS AND COLITIS, UNSPECIFIED (4) Other specified hypothyroidism Code(s): E03.8 - OTHER SPECIFIED HYPOTHYROIDISM Visit type - Emergency Visit Emergency Visit: Yes ED Registration Date: 01/27/17 Care time: The patient presented to the Emergency Department on the above date and was hospitalized for further evaluation of their emergent condition. - New Patient This patient is new to me today: Yes Date on this admission: 01/28/17 - Critical Care Critical Care patient: Yes Total Critical Care Time (in minutes): 35 Critical Care Statement: The care of this patient involved high complexity decision making to prevent further life threatening deterioration of the patient 's condition and/or to evalute & treat vital organ system(s) failure or risk of failure.
--- NOTE | 2017-01-28 17:24 | EKG ---
Test Reason : Blood Pressure : / mmHG Vent. Rate : 100 BPM Atrial Rate : 100 BPM P-R Int : 158 ms QRS Dur : 082 ms QT Int : 342 ms P-R-T Axes : 030 053 012 degrees QTc Int : 441 ms NORMAL SINUS RHYTHM INTRAATRIAL CONDUCTION DELAY WHEN COMPARED WITH ECG OF 15-AUG-2009 13:33, NO SIGNIFICANT CHANGE WAS FOUND Confirmed by LISBET GRANT MD ([id number]) on 01/28/2017 5:23:51 PM Referred By: Confirmed By:LISBET GRANT MD
--- NOTE | 2017-01-28 17:56 | CON.GI ---
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 SHE THOUGHT IT WAS RELATED TO SOMETHING SHE ATE. SHE RESTED AND THE PAIN GOT BETTER BUT NEVER WENT AWAY. SHE CONTINUED TO COME TO WORK. SHE WORKED THE WEEKEND AND YESTERDAY AT 3PM SHE DEVELOPED SEVERE PERIUMBILICAL PAIN AND DYSURIA. WHICH PROMPTED AN ER VISIT. IN THE ER HER WBC COUNT WAS FOUND TO BE SLIGHTLY ELEVATED. SHE HAD NO FEVER AND A CT SCAN SHOWED DILATED THICKENED LOOPS OF SMALL BOWEL AND THICKENED MESENTARY AND INFLAMMATION WITH SMALL FOCI OF AIR IN THE UPPER PELVIS. THE MID SIGMOID COLON WAS ALSO IN THIS AREA AND IT TOO LOOKED THICKENED AND THERE WAS DIVERTICULOSIS. THE SUGGESTION ON THE READ BY DR ALVARADO WAS THAT THIS COULD REPRESENT A ACUTE ISCHEMIA OF THE SMALL INTESTINE WITH OR WITHOUT PERFORATION OR A PERFORATED DIVERTICULITIS. SHE WAS MADE NPO AND PLACED ON ANTIBIOTICS. SHE WAS SEEN BY PRE PRESS MANAGER. SHE STILL HAS PAIN BUT IT HAS IMPROVED. SHE HAS HAD NO FEVER. SHE IS PASSING FLATUS. SHE HAS NOT YETHAD A COLONOSCOPY SHE HAS JUST TURNED 51. SHE HAS NO GI HISTORY OF DIVERTICULAR DIASEASE OR DIVERTICULITIS. THERE IS NO RECENT TRAVEL, ABDOMINAL TRAUMA OR SURGERY. SHE HAS A HISTORY OF A TUBAL LIGATION AND CHOLECYSECTOMY - History Source History Provided By: Patient Limitations to Obtaining History: No Limitations - Past Medical History LAPELER: No: Alzheimer's, CVA, Dementia, Migraine, Multiple Sclerosis, Peripheral Neuropathy, Parkinson's, Seizure, Syncope, TIA, Vertigo, Other Cardio/Vascular: Yes: Other (Mitral valve prolapse). No: AFIB, Aneurysm, Aortic Insufficiency, Aortic Stenosis, CAD, CHF, Deep Vein Thrombosis, HTN, Hyperlipdemia, [place], Mitral Insufficiency, Mitral Stenosis, Murmur, Pulmonary Hypertension Pulmonary: No: Asthma, Bronchitis, Cancer, COPD, O2 Dependent, Pneumonia, Previously Intubated, Pulmonary Embolus, Pulmonary Fibrosis, Sleep Apnea, Other Gastrointestinal: Yes: Other (Occassioanl acid reflux, relieved by position). No: Ascites, Cancer, Constipation, Crohn's Disease, Diverticulitis, Diverticulosis, Esophageal Varices, Gastritis, GERD, GI Bleed, Hemorrhoids, Hiatal Hernia, Inflamatory Bowel Disease, Irritable Bowel Disease, Pancreatitis , Peptic Ulcer Disease, Ulcerative Colitis Hepatobiliary: No: Cirrhosis, Cholelithiasis, Cholecystitis, Choledocholithiasis , Hepatitis A, Hepatitis B, Hepatitis C, Other Renal/: No: Renal Failure, Renal Inusuff, BPH, Cancer, Hematuria, Hemodialysis , Neurogenic Bladder, Renal Calculi, UTI, Other Reproductive: No: Ectopic , Endometriosis, Fibroids, PID, Polycystic Ovary Syndrome, Postmenopausal, Other ...LMP Comment: about 1 year ago ...: No (menopause) Heme/Onc: No: Anemia, B12 Deficiency, Bleeding Disorder, Cancer, Current Chemotherapy, Current Radiation Therapy, Hemochromatosis, Hypercoaguable State, Myeloproliferative Synd, Sickle Cell Disease, Sickle Cell Trait, Thrombocytopenia, Other Infectious Disease: No: AIDS, C-Diff, Herpes Zoster, HIV, MRSA, STD's, Tuberculosis, VREF, Other Psych: No: Addictions, Anxiety, Bipolar, Depression, Panic, Psychosis, Schizophrenia, Other Musculoskeletal: No: Bursitis, Chronic low back pain, Hemiparesis, Hemiplegia, Osteoarthritis, Paraplegia, Other Rheumatology: No: Fibromyalgia, Gout, Lupus, Rheumatoid Arthritis, Sarcoidosis, Vasculitis, Other ENT: No: Allergic Rhinitis, Sinusitis, Other Endocrine: Yes: Hypothyroidism. No: [place]'s Disease, [place]'s Disease, Diabetes Insipidus, Diabetes Mellitus, Hyperparathyroidism, Hyperthyroidism, Osteopenia, SIADH, Other - Past Surgical History Past Surgical History: Yes: Cholecystectomy (Had gall bladder removal about 23 years ago), Tubal Ligation - Alcohol/Substance Use Hx Alcohol Use: No - Smoking History Smoking history: Never smoked Have you smoked in the past 12 months: No - Social History Usual Living Arrangement: With Spouse ADL: Independent Home Medications - Allergies Allergies/Adverse Reactions: Allergies Allergy/AdvReac Type Severity Reaction Status Date / Time No Known Allergies Allergy Verified 01/27/17 17:04 - Home Medications Home Medications: Ambulatory Orders Atenolol [Tenormin -] 25 mg PO DAILY 01/27/17 Levothyroxine [Synthroid -] 112 mcg PO DAILY 01/27/17 Family Disease History - Family Disease History Family Disease History: Heart Disease: Father (HTN, Afib, Alzheimers, 4 years ago), Mother (diverticulosis, COPD,Pulm HTN 6 months ago), Respiratory: Mother, Other: Father, Mother Review of Systems - Review of Systems Constitutional: reports: Other ( ABOVE) Eyes: reports: No Symptoms HENT: reports: No Symptoms Neck: reports: No Symptoms Cardiovascular: reports: No Symptoms Respiratory: reports: No Symptoms Gastrointestinal: reports: Other ( ABOVE) Genitourinary: reports: Dysuria Musculoskeletal: reports: No Symptoms Integumentary: reports: No Symptoms Neurological: reports: No Symptoms Endocrine: reports: No Symptoms Hematology/Lymphatic: reports: No Symptoms Psychiatric: reports: No Symptoms Physical Exam-GI Vital Signs: Vital Signs Temperature 99.0 F 01/28/17 17:25 Pulse Rate 74 01/28/17 16:00 Respiratory Rate 20 01/28/17 16:00 Blood Pressure 135/81 01/28/17 16:00 O2 Sat by Pulse Oximetry (%) 99 01/28/17 09:00 Constitutional: Yes: Obese Eyes: Yes: Conjunctiva Clear HENT: Yes: Normocephalic Neck: Yes: Supple Cardiovascular: Yes: Regular Rate and Rhythm Respiratory: Yes: Regular Gastrointestinal Inspection: Yes: WNL ...Auscultate: Yes: Hypoactive Bowel Sounds ...Palpate: Yes: Tenderness, Other (PERIUMBILICAL AND LOWER ABDOMEN WITHOUT GUARDING OR REBOUND) Genitourinary: Yes: WNL Musculoskeletal: Yes: WNL Extremities: Yes: WNL Neurological: Yes: Alert, Oriented Labs: CBC, BMP 01/28/17 08:35 01/28/17 08:35 Laboratory Tests 01/27/17 01/27/17 01/27/17 18:06 18:06 18:06 WBC 10.1 H D RBC 4.31 Hgb 12.3 D Hct 37.4 MCV 86.8 MCH 28.6 MCHC 32.9 RDW 13.6 Plt Count 356 D MPV 7.3 L Neutrophils % 86.2 H D Lymphocytes % 9.8 D Monocytes % 2.8 L Eosinophils % 0.9 Basophils % 0.3 ESR Sodium Potassium Chloride Carbon Dioxide Anion Gap BUN Creatinine Random Glucose Lactic Acid Calcium Total Bilirubin 0.3 D AST 23 D ALT 53 D Alkaline Phosphatase 158 H D Total Protein 6.6 Albumin 3.5 Lipase 65 L Serum , Qual 01/27/17 01/27/17 01/27/17 20:08 21:35 22:07 WBC RBC Hgb Hct MCV MCH MCHC RDW Plt Count MPV Neutrophils % Lymphocytes % Monocytes % Eosinophils % Basophils % ESR 10 Sodium Potassium Chloride Carbon Dioxide Anion Gap BUN Creatinine Random Glucose Lactic Acid 1.3 Calcium Total Bilirubin AST ALT Alkaline Phosphatase Total Protein Albumin Lipase Serum , Qual Negative 01/28/17 01/28/17 08:35 08:35 WBC 10.9 H RBC 3.84 Hgb 11.2 Hct 33.5 MCV 87.1 MCH 29.1 MCHC 33.4 RDW 13.6 Plt Count 269 D MPV 6.8 L Neutrophils % 85.0 H Lymphocytes % 10.7 Monocytes % 3.6 L Eosinophils % 0.3 Basophils % 0.4 ESR Sodium 141 Potassium 4.2 Chloride 105 Carbon Dioxide 28 Anion Gap 8 BUN 8 D Creatinine 0.6 D Random Glucose 110 H Lactic Acid Calcium 8.2 L Total Bilirubin AST ALT Alkaline Phosphatase Total Protein Albumin Lipase Serum , Qual Imaging - Results Cat Scan: Image Reviewed Problem List - Problems (1) Diverticulitis of colon with perforation Assessment/Plan: I BELIEVE THAT THIS IS DIVERTICULITIS WITH PERFORATION WITHOUT FLUID COLLECTION OR ABSCESS. I AGREE WITH THE TREATMENT PLAN. THIS IS NOT PANCREATITIS WAS SUGGESTED. SMALL BOWEL ENTERITIS WITH PERFORATION IS LESS LIKELY. WOULD KEEP NPO MONITOR CBC, TEMP, AND ESR/CRP REPEAT CT SCAN IN A NUMBER OF DAYS WOULD DO CT ENTEROGRAPHY GELA LAMBERT MD Code(s): K57.20 - DVTRCLI OF LG INT W PERFORATION AND ABSCESS W/O BLEEDING (2) Enteritis Code(s): K52.9 - NONINFECTIVE GASTROENTERITIS AND COLITIS, UNSPECIFIED (3) Diverticulosis Code(s): K57.90 - DVRTCLOS OF INTEST, PART UNSP, W/O PERF OR ABSCESS W/O BLEED (4) Abdominal pain Code(s): R10.9 - UNSPECIFIED ABDOMINAL PAIN Qualifiers: Abdominal location: periumbilical Qualified Code(s): R10.33 - Periumbilical pain (5) Other specified hypothyroidism Code(s): E03.8 - OTHER SPECIFIED HYPOTHYROIDISM
[2017-01-28 18:14] LABS: URINE APPEARANCE CLEAR; URINE BILIRUBIN NEGATIVE (NEGATIVE); URINE BLOOD NEGATIVE (NEGATIVE); URINE COLOR YELLOW; URINE GLUCOSE (UA) NEGATIVE (NEGATIVE); URINE KETONE NEGATIVE (NEGATIVE); URINE LEUK ESTERASE NEGATIVE (NEGATIVE); URINE NITRITE NEGATIVE (NEGATIVE); URINE PROTEIN NEGATIVE (NEGATIVE); URINE UROBILINOGEN NEGATIVE E.U./dl (0.2-1.0)
[2017-01-28] MEDS ORDERED: ONDANSETRON 4 MG/2 ML VIAL IVPUSH ONE (20:11)
--- NOTE | 2017-01-28 20:40 | HP ---
Admitting History and Physical - Primary Care Physician PCP: Yovany More - Admission Chief Complaint: ABD PAIN History of Present Illness: 51 Y/O FEMALE WITH H/O OBESITY, HTN, HYPOTHYROID PRESENTS TO ER LAST NIGHT WITH SUDDEN, ACUTE SEVERE ABD PAIN. CT ABD SHOWS PERFORATION VS SBO VS DIVERTICULITIS. SURGERY AND GI BOTH HAVE EVALUATE AND AGREE WITH CURRENT TX PLAN. 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 No: AFIB, Aneurysm, Aortic Insufficiency, Aortic Stenosis, CAD, CHF, Deep Vein Thrombosis, HTN, Hyperlipdemia, [place], Mitral Insufficiency, Mitral Stenosis, Murmur, Pulmonary Hypertension Pulmonary: No: Asthma, Bronchitis, Cancer, COPD, O2 Dependent, Pneumonia, Previously Intubated, Pulmonary Embolus, Pulmonary Fibrosis, Sleep Apnea, Other Gastrointestinal: Yes: Other (Occassioanl acid reflux, relieved by position). No: Ascites, Cancer, Constipation, Crohn's Disease, Diverticulitis, Diverticulosis, Esophageal Varices, Gastritis, GERD, GI Bleed, Hemorrhoids, Hiatal Hernia, Inflamatory Bowel Disease, Irritable Bowel Disease, Pancreatitis , Peptic Ulcer Disease, Ulcerative Colitis Hepatobiliary: No: Cirrhosis, Cholelithiasis, Cholecystitis, Choledocholithiasis , Hepatitis A, Hepatitis B, Hepatitis C, Other Renal/: No: Renal Failure, Renal Inusuff, BPH, Cancer, Hematuria, Hemodialysis , Neurogenic Bladder, Renal Calculi, UTI, Other ...LMP Comment: about 1 year ago ...: No (menopause) Heme/Onc: No: Anemia, B12 Deficiency, Bleeding Disorder, Cancer, Current Chemotherapy, Current Radiation Therapy, Hemochromatosis, Hypercoaguable State, Myeloproliferative Synd, Sickle Cell Disease, Sickle Cell Trait, Thrombocytopenia, Other Infectious Disease: No: AIDS, C-Diff, Herpes Zoster, HIV, MRSA, STD's, Tuberculosis, VREF, Other Psych: No: Addictions, Anxiety, Bipolar, Depression, Panic, Psychosis, Schizophrenia, Other Musculoskeletal: No: Bursitis, Chronic low back pain, Hemiparesis, Hemiplegia, Osteoarthritis, Paraplegia, Other Rheumatology: No: Fibromyalgia, Gout, Lupus, Rheumatoid Arthritis, Sarcoidosis, Vasculitis, Other ENT: No: Allergic Rhinitis, Sinusitis, Other Endocrine: Yes: Hypothyroidism. No: [place]'s Disease, [place]'s Disease, Diabetes Insipidus, Diabetes Mellitus, Hyperparathyroidism, Hyperthyroidism, Osteopenia, SIADH, Other - Past Surgical History Past Surgical History: Yes: Cholecystectomy (Had gall bladder removal about 23 years ago), Tubal Ligation - Smoking History Smoking history: Never smoked Have you smoked in the past 12 months: No - Alcohol/Substance Use Hx Alcohol Use: No - Social History ADL: Independent Home Medications - Allergies Allergies/Adverse Reactions: Allergies Allergy/AdvReac Type Severity Reaction Status Date / Time No Known Allergies Allergy Verified 01/27/17 17:04 - Home Medications Home Medications: Ambulatory Orders Atenolol [Tenormin -] 25 mg PO DAILY 01/27/17 Levothyroxine [Synthroid -] 112 mcg PO DAILY 01/27/17 Family Disease History - Family Disease History Family Disease History: Heart Disease: Father (HTN, Afib, Alzheimers, 4 years ago), Mother (diverticulosis, COPD,Pulm HTN 6 months ago), Respiratory: Mother, Other: Father, Mother Review of Systems - Review of Systems Constitutional: reports: Loss of Appetite, Weakness Eyes: reports: No Symptoms HENT: reports: No Symptoms Neck: reports: No Symptoms Cardiovascular: reports: No Symptoms Respiratory: reports: No Symptoms Gastrointestinal: reports: Abdominal Pain, Nausea Genitourinary: reports: No Symptoms Musculoskeletal: reports: No Symptoms Integumentary: reports: No Symptoms Neurological: reports: No Symptoms Endocrine: reports: No Symptoms Hematology/Lymphatic: reports: No Symptoms Psychiatric: reports: No Symptoms Physical Examination Vital Signs: Vital Signs Temperature 98.7 F 01/28/17 20:00 Pulse Rate 80 01/28/17 20:00 Respiratory Rate 20 01/28/17 20:21 Blood Pressure 136/77 01/28/17 20:00 O2 Sat by Pulse Oximetry (%) 99 01/28/17 20:24 Constitutional: Yes: Moderate Distress Eyes: Yes: WNL HENT: Yes: WNL Neck: Yes: WNL Cardiovascular: Yes: WNL Respiratory: Yes: Cough Gastrointestinal: Yes: Tenderness Renal/: Yes: WNL Musculoskeletal: Yes: WNL Extremities: Yes: WNL Edema: No Peripheral Pulses WNL: Yes Integumentary: Yes: WNL Wound/Incision: Yes: Clean/Dry Neurological: Yes: WNL ...Motor Strength: WNL Psychiatric: Yes: WNL Labs: CBC, BMP 01/28/17 08:35 01/28/17 08:35 Imaging - Results Cat Scan: Report Reviewed Problem List - Problems (1) Abdominal pain Code(s): R10.9 - UNSPECIFIED ABDOMINAL PAIN Qualifiers: Abdominal location: periumbilical Qualified Code(s): R10.33 - Periumbilical pain (2) Acute diverticulitis Code(s): K57.92 - DVTRCLI OF INTEST, PART UNSP, W/O PERF OR ABSCESS W/O BLEED (3) Diverticulitis of colon with perforation Code(s): K57.20 - DVTRCLI OF LG INT W PERFORATION AND ABSCESS W/O BLEEDING (4) Small bowel obstruction Code(s): K56.69 - OTHER INTESTINAL OBSTRUCTION Assessment/Plan IV ABX NPO IVF PAIN CONTROL ZOFRAN IV GI/SX/ID FOLLOW APPRECIATED
[2017-01-29] MEDS: ACETAMINOPHEN 1000 MG/100 ML VIAL (NON FORMULARY) IVPB PRN ×2 (00:41→06:41)
[2017-01-29] MEDS: METRONIDAZOLE 500 MG PREMIXED 100 ML IVPB SCH ×3 (01:44→18:27)
[2017-01-29 06:12] LABS: BASOPHIL 0.2 % (0-2.0); MCHC 33.7 g/dl (32.0-36.0); MEAN CELL VOLUME 86.1 fl (80-96); MEAN PLT VOLUME 7.6 fl (7.5-11.1); NEUTROPHILS 87.3 % (42.8-82.8); PLATELET COUNT 298 K/MM3 (134-434); RDW 13.6 % (11.6-15.6); WHITE BLOOD COUNT 10.3 K/mm3 (4.0-10.0)
[2017-01-29 06:36] LABS: ALBUMIN 2.7 g/dl (3.4-5.0); ANION GAP 10 (8-16); BILIRUBIN,TOTAL 0.9 mg/dL (0.2-1.0); CALCIUM 8.1 mg/dL (8.5-10.1); CO2 25 mmol/L (21-32); CREATININE 0.5 mg/dL (0.55-1.02); GLUCOSE,RANDOM 95 mg/dL (74-106); SGOT/AST 37 U/L (15-37); SGPT/ALT 59 U/L (12-78)
[2017-01-29 06:37] LABS: ALK PHOS 146 U/L (45-117); TOT PROT 5.6 g/dl (6.4-8.2)
[2017-01-29] MEDS: SODIUM CHLORIDE 1,000 ML IV SCH (08:30)
[2017-01-29] MEDS: PANTOPRAZOLE SODIUM 40 MG/100 ML PRE-DOCKED IVPB SCH (09:05)
[2017-01-29] MEDS: ENOXAPARIN NA (PORCINE) 40 MG/0.4 ML DISP.SYRIN SQ SCH (09:05)
[2017-01-29] MEDS: ONDANSETRON 4 MG/2 ML VIAL IVPB PRN (09:30)
[2017-01-29] MEDS: LEVOFLOXACIN 500 MG IVPB 100 ML IVPB SCH (09:30)
[2017-01-29] MEDS ORDERED: morphine CARPU-JECT 2 MG/1 ML DISP.SYRIN IVPUSH PRN (10:26)
[2017-01-29] MEDS ORDERED: ACETAMINOPHEN 1000 MG/100 ML VIAL (NON FORMULARY) IVPB PRN (10:27)
--- NOTE | 2017-01-29 10:37 | PN ---
Teaching Attending Note Name of Resident: Luis Lim ATTENDING PHYSICIAN STATEMENT I saw and evaluated the patient. I reviewed the resident's note and discussed the case with the resident. I agree with the resident's findings and plan as documented. SUBJECTIVE: Pt seen and examined in the ICU. Abdominal pain maybe slightly improved. No fevers or chills. +nausea with vomiting overnight which she attributes to narcotics. Had brown solid BM this AM. OBJECTIVE: Last Vital Signs Temp Pulse Resp BP Pulse Ox 98.7 F 81 18 139/88 99 01/29/17 09:47 01/29/17 09:47 01/29/17 09:47 01/29/17 09:47 01/28/17 20:24 Intake & Output 01/26/17 01/27/17 01/28/17 01/29/17 23:59 23:59 23:59 23:59 Intake Total 3250 1950 Output Total 200 Balance 3050 1950 Weight 245 lb 2.464 oz 245 lb 2.464 oz 243 lb 11.2 oz Gen: NAD in chair Heart: RRR Lung: decreased breath sounds at the bases Abd: soft, mild TTP periumbilical region, no rebound/guarding Ext: no edema CBC, BMP 01/29/17 05:20 01/29/17 05:20 Active Medications Acetaminophen (Ofirmev Injection -) 1,000 mg IVPB Q6H PRN PRN Reason: FEVER OR PAIN Stop: 01/30/17 04:28 Enoxaparin Sodium (Lovenox -) 40 mg SQ DAILY [facility] Last Admin: 01/29/17 09:05 Dose: 40 mg Metronidazole (Flagyl 500mg Premixed Ivpb -) 100 mls @ 100 mls/hr IVPB Q8H-IV [facility] Last Admin: 01/29/17 09:03 Dose: 100 mls/hr Levofloxacin (Levaquin 500 Mg Premixed Ivpb -) 100 mls @ 100 mls/hr IVPB DAILY [facility] Last Admin: 01/29/17 09:30 Dose: 100 mls/hr Dextrose/Sodium Chloride (Dextrose 5%-Normal Saline+20 Meq Kcl -) 1,000 mls @ 100 mls/hr IV ASDIR C[facility]ST[facility] Metoprolol Tartrate (Lopressor Injection -) 5 mg IVPUSH Q4H PRN PRN Reason: HYPERTENSION Morphine Sulfate (Morphine Injection -) 2 mg IVPUSH Q3H PRN PRN Reason: PAIN Ondansetron HCl (Zofran Injection) 8 mg IVPUSH Q6H PRN PRN Reason: NAUSEA AND/OR VOMITING Pantoprazole Sodium (Protonix 40mg Ivpb (Pre-Docked)) 40 mg IVPB DAILY [facility] Last Admin: 01/29/17 09:05 Dose: 40 mg ASSESSMENT AND PLAN: Abdominal Pain r/o Diverticulitis HTN Hypothyroidism Mitral Valve Prolapse - continue empiric antibiotics - f/u cultures - serial abdominal exams - pain control - antiemetics - incentive spirometry - NPO - IVF, change to D51/2NS with KCl - DVT prophylaxis
[2017-01-29] MEDS: D5-NS + 20 MEQ KCL - 1,000 ML IV SCH (11:10)
[2017-01-29 12:00] LABS: FREE T4 1.15 ng/dl (0.76-1.46); THYROID STIMULATING HORMONE 4.06 uIU/ml (0.358-3.74)
--- NOTE | 2017-01-29 12:29 | PN ---
Physical Exam: SUBJECTIVE: Patient seen and examined at bedside. Pt continues to have abdominal pain but is improved compared to yesterday. Rated as a 5/10 today and in same location. Pt states she threw up yesterday and it was mainly yellow in color with no blood and felt better after throwing up. Pt is passing some gas and had a BM today with solid stool. She denies any fevers, chills, nausea at this time. OBJECTIVE: Vital Signs Temperature 98.7 F 01/29/17 09:47 Pulse Rate 82 01/29/17 11:52 Respiratory Rate 18 01/29/17 11:52 Blood Pressure 134/81 01/29/17 11:52 O2 Sat by Pulse Oximetry (%) 99 01/28/17 20:24 GENERAL: The patient is awake, alert, and fully oriented, in no acute distress. HEAD: Normal with no signs of trauma. EYES: extraocular movements intact, sclera anicteric, conjunctiva clear. No ptosis. ENT: Ears normal, nares patent NECK: Trachea midline LUNGS: Breath sounds equal, clear to auscultation bilaterally, no wheezes HEART: Regular rate and rhythm, S1, S2 without murmur, rub or gallop. ABDOMEN: +periumbilical tenderness, Soft, nondistended, normoactive bowel sounds , no guarding, no rebound EXTREMITIES: warm, well-perfused NEUROLOGICAL: Cranial nerves II through XII grossly intact. Normal speech, gait not observed. PSYCH: Normal mood, normal affect. SKIN: Warm, dry Laboratory Results - last 24 hr 01/28/17 01/29/17 01/29/17 17:15 05:20 05:20 WBC 10.3 H RBC 3.77 Hgb 10.9 Hct 32.5 MCV 86.1 MCH 29.0 MCHC 33.7 RDW 13.6 Plt Count 298 MPV 7.6 D Neutrophils % 87.3 H Lymphocytes % 7.8 L D Monocytes % 3.7 L Eosinophils % 1.0 D Basophils % 0.2 ESR Sodium 142 Potassium 3.8 Chloride 107 Carbon Dioxide 25 Anion Gap 10 BUN 5 L D Creatinine 0.5 L Creat Clearance w eGFR > 60 Random Glucose 95 Calcium 8.1 L Total Bilirubin 0.9 D AST 37 D ALT 59 Alkaline Phosphatase 146 H C-Reactive Protein Total Protein 5.6 L Albumin 2.7 L D TSH 4.06 H D Free T4 1.15 D Urine Color Yellow Urine Appearance Clear Urine pH 6.0 Ur Specific [place] 1.025 Urine Protein Negative Urine Glucose (UA) Negative Urine Ketones Negative Urine Blood Negative Urine Nitrite Negative Urine Bilirubin Negative Urine Urobilinogen Negative Ur Leukocyte Esterase Negative 01/29/17 01/29/17 05:20 05:20 WBC RBC Hgb Hct MCV MCH MCHC RDW Plt Count MPV Neutrophils % Lymphocytes % Monocytes % Eosinophils % Basophils % ESR 45 H Sodium Potassium Chloride Carbon Dioxide Anion Gap BUN Creatinine Creat Clearance w eGFR Random Glucose Calcium Total Bilirubin AST ALT Alkaline Phosphatase C-Reactive Protein 17.2 H Total Protein Albumin TSH Free T4 Urine Color Urine Appearance Urine pH Ur Specific [place] Urine Protein Urine Glucose (UA) Urine Ketones Urine Blood Urine Nitrite Urine Bilirubin Urine Urobilinogen Ur Leukocyte Esterase Active Medications Generic Name Dose Route Start Last Admin Trade Name Freq PRN Reason Stop Dose Admin Acetaminophen 1,000 mg 01/29/17 10:27 Ofirmev Injection - IVPB 01/30/17 04:28 Q6H PRN FEVER OR PAIN Enoxaparin Sodium 40 mg 01/28/17 11:15 01/29/17 09:05 Lovenox - SQ 40 mg DAILY [facility] Administration Metronidazole 100 mls @ 100 mls/hr 01/28/17 10:00 01/29/17 09:03 Flagyl 500mg Premixed Ivpb - IVPB 100 mls/hr Q8H-IV CRISTY Administration Levofloxacin 100 mls @ 100 mls/hr 01/28/17 10:00 01/29/17 09:30 Levaquin 500 Mg Premixed Ivpb - IVPB 100 mls/hr DAILY [facility] Administration Dextrose/Sodium Chloride 1,000 mls @ 100 mls/hr 01/29/17 10:30 01/29/17 11:10 Dextrose 5%-Normal Saline+20 Meq Kcl - IV 100 mls/hr ASDIR CRISTY Administration Metoprolol Tartrate 5 mg 01/28/17 03:09 Lopressor Injection - IVPUSH Q4H PRN HYPERTENSION Morphine Sulfate 2 mg 01/29/17 10:26 01/29/17 11:04 Morphine Injection - IVPUSH 2 mg Q3H PRN Administration PAIN Ondansetron HCl 8 mg 01/29/17 10:27 Zofran Injection IVPUSH Q6H PRN NAUSEA AND/OR VOMITING Pantoprazole Sodium 40 mg 01/28/17 10:00 01/29/17 09:05 Protonix 40mg Ivpb (Pre-Docked) IVPB 40 mg DAILY [facility] Administration ASSESSMENT/PLAN: 51 y/o F with PMH of HTN, hypothyroidism presented to ER with 10/10 mid abdominal pain with sudden onset. Admitted to ICU for diverticulitis w/ perforation. Neuro: Mental status intact Abd: Abdominal pain likely secondary to diverticulitis w/perforation -Surgery on board, ID on board, GI on board -f/u C. Diff, stool cultures -c/w levaquin and flagyl -pain control with Ofirmev 1g IV q6h PRN, morphine 2mg IV q3h PRN -D5-1/2NS +20meq KCl @ 100 ml/hr -Protonix 40 mg IVPB qd -Zofran 8mg IV q6h PRN for nausea Endocrine Hypothyroidism -c/w synthroid 150 mcg po qd once able to tolerate PO -consider starting IV synthroid 75 mcg daily. Cardio HTN -c/w lopressor 5 mg IV q4h prn for htn Prophylaxis -DVT: lovenox 40 mg sq qd -GI: Protonix 40 mg IV qd FEN -D5-1/2 NS + 20meq KCl @ 100ml/hr -Monitor electrolytes, replete as necessary -NPO Dispo: continue to monitor in ICU Problem List - Problems (1) Abdominal pain Code(s): R10.9 - UNSPECIFIED ABDOMINAL PAIN Qualifiers: Abdominal location: periumbilical Qualified Code(s): R10.33 - Periumbilical pain (2) Acute diverticulitis Code(s): K57.92 - DVTRCLI OF INTEST, PART UNSP, W/O PERF OR ABSCESS W/O BLEED (3) Colitis Code(s): K52.9 - NONINFECTIVE GASTROENTERITIS AND COLITIS, UNSPECIFIED (4) Other specified hypothyroidism Code(s): E03.8 - OTHER SPECIFIED HYPOTHYROIDISM Visit type - Emergency Visit Emergency Visit: Yes ED Registration Date: 01/27/17 Care time: The patient presented to the Emergency Department on the above date and was hospitalized for further evaluation of their emergent condition. - New Patient This patient is new to me today: No - Critical Care Critical Care patient: Yes Total Critical Care Time (in minutes): 35 Critical Care Statement: The care of this patient involved high complexity decision making to prevent further life threatening deterioration of the patient 's condition and/or to evalute & treat vital organ system(s) failure or risk of failure.
[2017-01-29] MEDS: ONDANSETRON 4 MG/2 ML VIAL IVPUSH PRN ×2 (13:42→18:26)
--- NOTE | 2017-01-29 14:19 | PN ---
Progress Note, Physician History of Present Illness: third day on flagyl and levofloxacin and is on NPO. Feels better today 10/28 pain Had 2 episodes of vomiting yesterday, yellowish, non bloody that she attributes to narcotics, has happened before Had another episode this afternoon, no fevers, no chills Had a bowel movement of solid stool today, non bloody Overall feels better - Current Medication List Current Medications: Active Medications Acetaminophen (Ofirmev Injection -) 1,000 mg IVPB Q6H PRN PRN Reason: FEVER OR PAIN Stop: 01/30/17 04:28 Last Admin: 01/29/17 13:40 Dose: 1,000 mg Enoxaparin Sodium (Lovenox -) 40 mg SQ DAILY [facility] Last Admin: 01/29/17 09:05 Dose: 40 mg Metronidazole (Flagyl 500mg Premixed Ivpb -) 100 mls @ 100 mls/hr IVPB Q8H-IV [facility] Last Admin: 01/29/17 09:03 Dose: 100 mls/hr Levofloxacin (Levaquin 500 Mg Premixed Ivpb -) 100 mls @ 100 mls/hr IVPB DAILY [facility] Last Admin: 01/29/17 09:30 Dose: 100 mls/hr Dextrose/Sodium Chloride (Dextrose 5%-Normal Saline+20 Meq Kcl -) 1,000 mls @ 100 mls/hr IV ASDIR [facility] Last Admin: 01/29/17 11:10 Dose: 100 mls/hr Metoprolol Tartrate (Lopressor Injection -) 5 mg IVPUSH Q4H PRN PRN Reason: HYPERTENSION Morphine Sulfate (Morphine Injection -) 2 mg IVPUSH Q3H PRN PRN Reason: PAIN Last Admin: 01/29/17 11:04 Dose: 2 mg Ondansetron HCl (Zofran Injection) 8 mg IVPUSH Q6H PRN PRN Reason: NAUSEA AND/OR VOMITING Last Admin: 01/29/17 13:42 Dose: 8 mg Pantoprazole Sodium (Protonix 40mg Ivpb (Pre-Docked)) 40 mg IVPB DAILY [facility] Last Admin: 01/29/17 09:05 Dose: 40 mg - Objective Vital Signs: Vital Signs Temperature 98.6 F 01/29/17 14:00 Pulse Rate 82 01/29/17 14:00 Respiratory Rate 15 01/29/17 14:00 Blood Pressure 133/83 01/29/17 14:00 O2 Sat by Pulse Oximetry (%) 99 01/28/17 20:24 Constitutional: Yes: Calm Eyes: Yes: EOM Intact HENT: No: Nasal Congestion, Pharyngeal Erythema Neck: Yes: Supple. No: Rigid, Tenderness Cardiovascular: Yes: Regular Rate and Rhythm, S1, S2 Respiratory: Yes: Cough (dry cough). No: On Nasal O2, On Venti-Mask, Rales, Rhonchi, Wheezes Gastrointestinal: Yes: Hypoactive Bowel Sounds (Bowel sounds present), Other ( No areas of tenderness) ...Rectal Exam: Yes: Deferred Genitourinary: No: Anuria, Samuels Present (ambulating to bathroom and back to pass urine) Musculoskeletal: No: Joint Stiffness, Joint Swelling Edema: No Labs: CBC, BMP 01/29/17 05:20 01/29/17 05:20 Problem List - Problems (1) Acute diverticulitis Assessment/Plan: Acute diverticulitis with rupture and localized pnuemoperitoneum R/O Merkels diverticulum Code(s): K57.92 - DVTRCLI OF INTEST, PART UNSP, W/O PERF OR ABSCESS W/O BLEED (2) Small bowel obstruction Assessment/Plan: Inflammed small bowel on imaging , some improvement, passed stool today Code(s): K56.69 - OTHER INTESTINAL OBSTRUCTION (3) Status post cholecystectomy Assessment/Plan: 20 years post cholecystectomy Code(s): Z90.49 - ACQUIRED ABSENCE OF OTHER SPECIFIED PARTS OF DIGESTIVE TRACT Impression/Plan Impression/Plan: Rupture diverticulum with inflammed small bowel, 3rd day on levofloxacin and flagyl remaining afebrile awaiting results of blood culture Moved bowel today on ondansetron for nausea/vomiting likely due to narcotics Plan: Continue levofloxacina and flagyl awaiting culture results Visit type - Emergency Visit Emergency Visit: No - New Patient This patient is new to me today: No - Critical Care Critical Care patient: No - Discharge Referral Referred to [facility] No
[2017-01-29] MEDS ORDERED: LEVOTHYROXINE SODIUM 100 MCG VIAL IVPUSH SCH (17:45)
--- NOTE | 2017-01-29 17:54 | PN ---
Progress Note, Physician Chief Complaint: Abdominal pain History of Present Illness: Mild discomfort this am in hypogastric/suprapubic region, mild nausea after receiving morphine for pain, felt better after receiving zofran IVPB, has family hx of diverticulosis on mothers side. No previous episode. No colonoscopy in the past. Had solid BM this AM-likely no cdiff present, +flatulence, seen by surgery, no sx recommended at this time. NPO. - Current Medication List Current Medications: Active Medications Acetaminophen (Ofirmev Injection -) 1,000 mg IVPB Q6H PRN PRN Reason: FEVER OR PAIN Stop: 01/30/17 04:28 Last Admin: 01/29/17 13:40 Dose: 1,000 mg Enoxaparin Sodium (Lovenox -) 40 mg SQ DAILY [facility] Last Admin: 01/29/17 09:05 Dose: 40 mg Metronidazole (Flagyl 500mg Premixed Ivpb -) 100 mls @ 100 mls/hr IVPB Q8H-IV [facility] Last Admin: 01/29/17 09:03 Dose: 100 mls/hr Levofloxacin (Levaquin 500 Mg Premixed Ivpb -) 100 mls @ 100 mls/hr IVPB DAILY [facility] Last Admin: 01/29/17 09:30 Dose: 100 mls/hr Dextrose/Sodium Chloride (Dextrose 5%-Normal Saline+20 Meq Kcl -) 1,000 mls @ 100 mls/hr IV ASDIR [facility] Last Admin: 01/29/17 11:10 Dose: 100 mls/hr Levothyroxine Sodium (Synthroid Injection -) 75 mcg IVPUSH DAILY [facility] Metoprolol Tartrate (Lopressor Injection -) 5 mg IVPUSH Q4H PRN PRN Reason: HYPERTENSION Morphine Sulfate (Morphine Injection -) 2 mg IVPUSH Q3H PRN PRN Reason: PAIN Last Admin: 01/29/17 11:04 Dose: 2 mg Ondansetron HCl (Zofran Injection) 8 mg IVPUSH Q6H PRN PRN Reason: NAUSEA AND/OR VOMITING Last Admin: 01/29/17 13:42 Dose: 8 mg Pantoprazole Sodium (Protonix 40mg Ivpb (Pre-Docked)) 40 mg IVPB DAILY [facility] Last Admin: 01/29/17 09:05 Dose: 40 mg - Objective Vital Signs: Vital Signs Temperature 99.0 F 07/12/17 16:00 Pulse Rate 95 H 01/29/17 16:00 Respiratory Rate 20 01/29/17 16:00 Blood Pressure 126/81 01/29/17 16:00 O2 Sat by Pulse Oximetry (%) 99 01/28/17 20:24 Constitutional: Yes: Well Nourished, No Distress, Calm Cardiovascular: Yes: Regular Rate and Rhythm Respiratory: Yes: Regular Gastrointestinal: Yes: Normal Bowel Sounds, Tenderness (suprapubic) Musculoskeletal: Yes: WNL Extremities: Yes: WNL Edema: No Peripheral Pulses WNL: Yes Neurological: Yes: Alert, Oriented Psychiatric: Yes: Alert, Oriented Labs: CBC, BMP 01/29/17 05:20 01/29/17 05:20 Problem List - Problems (1) Abdominal pain Assessment/Plan: -pain management -NPO -IVF -IV abx -monitor for any diarrhea Code(s): R10.9 - UNSPECIFIED ABDOMINAL PAIN Qualifiers: Abdominal location: periumbilical Qualified Code(s): R10.33 - Periumbilical pain (2) Acute diverticulitis Assessment/Plan: -seen by GI and surgery, no intervention recommended at this time. Code(s): K57.92 - DVTRCLI OF INTEST, PART UNSP, W/O PERF OR ABSCESS W/O BLEED (3) Other specified hypothyroidism Assessment/Plan: start IV levothyroxine, recommended dosing 50-70% of PO dose. Code(s): E03.8 - OTHER SPECIFIED HYPOTHYROIDISM Assessment/Plan -IV abx -IVF -NPO -Pain management with morphine -Antiemetic-zofran increased -PPI -DVT prophylaxis -IV levothyroxine
[2017-01-29] MEDS ORDERED: PT OWN MED DRAWER 7, Y5N ONE (18:22)
--- NOTE | 2017-01-29 20:07 | PN ---
Teaching Attending Note Name of Resident: Nu Villegas ATTENDING PHYSICIAN STATEMENT I saw and evaluated the patient. I reviewed the resident's note and discussed the case with the resident. I agree with the resident's findings and plan as documented. SUBJECTIVE: OBJECTIVE: ASSESSMENT AND PLAN: Acute complicated diverticulitis Continue empiric levaquin/ flagyl
--- NOTE | 2017-01-29 20:49 | PN ---
Progress Note (short form) - Note Progress Note: No acute events Abdominal pain controlled +BM Vital Signs Period Temp Pulse Resp BP Sys/Coy Pulse Ox Last 24 Hr 98.6 F-99.0 F 76-100 15-24 122-147/76-91 Abd soft, mild LLQ tenderness, no rebound CBC, BMP 01/29/17 05:20 01/29/17 05:20 Continue antibiotics IV fluids Problem List - Problems (1) Abdominal pain Code(s): R10.9 - UNSPECIFIED ABDOMINAL PAIN Qualifiers: Abdominal location: periumbilical Qualified Code(s): R10.33 - Periumbilical pain
--- NOTE | 2017-01-30 00:25 | PN ---
Progress Note, Physician Chief Complaint: abdominal pain nausea and vomiting History of Present Illness: 51yow with PMHx of HTN, hypothyroidim, mitral valve prolapse, s/p cholecystectomy in distant past who presented to the ED c/odette approximately 5 days of waxing and waning periumbilical pain.has weakness,nausea pain severe requiring pain medication - Current Medication List Current Medications: Active Medications Acetaminophen (Ofirmev Injection -) 1,000 mg IVPB Q6H PRN PRN Reason: FEVER OR PAIN Stop: 01/30/17 04:28 Last Admin: 01/29/17 13:40 Dose: 1,000 mg Enoxaparin Sodium (Lovenox -) 40 mg SQ DAILY [facility] Last Admin: 01/29/17 09:05 Dose: 40 mg Metronidazole (Flagyl 500mg Premixed Ivpb -) 100 mls @ 100 mls/hr IVPB Q8H-IV [facility] Last Admin: 01/29/17 18:27 Dose: 100 mls/hr Levofloxacin (Levaquin 500 Mg Premixed Ivpb -) 100 mls @ 100 mls/hr IVPB DAILY [facility] Last Admin: 01/29/17 09:30 Dose: 100 mls/hr Dextrose/Sodium Chloride (Dextrose 5%-Normal Saline+20 Meq Kcl -) 1,000 mls @ 100 mls/hr IV ASDIR [facility] Last Admin: 01/29/17 11:10 Dose: 100 mls/hr Levothyroxine Sodium (Synthroid Injection -) 50 mcg IVPUSH DAILY [facility] Metoprolol Tartrate (Lopressor Injection -) 5 mg IVPUSH Q4H PRN PRN Reason: HYPERTENSION Morphine Sulfate (Morphine Injection -) 2 mg IVPUSH Q3H PRN PRN Reason: PAIN Last Admin: 01/29/17 11:04 Dose: 2 mg Ondansetron HCl (Zofran Injection) 8 mg IVPUSH Q6H PRN PRN Reason: NAUSEA AND/OR VOMITING Last Admin: 01/29/17 18:26 Dose: 8 mg Pantoprazole Sodium (Protonix 40mg Ivpb (Pre-Docked)) 40 mg IVPB DAILY [facility] Last Admin: 01/29/17 09:05 Dose: 40 mg - Objective Vital Signs: Vital Signs Temperature 98.7 F 01/29/17 22:00 Pulse Rate 82 01/30/17 00:00 Respiratory Rate 24 01/30/17 00:00 Blood Pressure 144/83 01/29/17 22:00 O2 Sat by Pulse Oximetry (%) 99 01/28/17 20:24 Constitutional: Yes: Well Nourished Eyes: Yes: EOM Intact HENT: Yes: Normocephalic Neck: Yes: Trachea Midline Cardiovascular: Yes: Regular Rate and Rhythm Respiratory: Yes: CTA Bilaterally Gastrointestinal: Yes: Normal Bowel Sounds, Abdomen, Obese, Hypoactive Bowel Sounds ...Rectal Exam: Yes: Deferred Genitourinary: Yes: WNL Breast(s): Yes: WNL Musculoskeletal: Yes: WNL Extremities: Yes: WNL Edema: No Peripheral Pulses WNL: Yes Labs: CBC, BMP 01/29/17 05:20 01/29/17 05:20 Problem List - Problems (1) Abdominal pain Code(s): R10.9 - UNSPECIFIED ABDOMINAL PAIN Qualifiers: Abdominal location: periumbilical Qualified Code(s): R10.33 - Periumbilical pain (2) Acute diverticulitis Code(s): K57.92 - DVTRCLI OF INTEST, PART UNSP, W/O PERF OR ABSCESS W/O BLEED (3) Colitis Code(s): K52.9 - NONINFECTIVE GASTROENTERITIS AND COLITIS, UNSPECIFIED (4) Other specified hypothyroidism Code(s): E03.8 - OTHER SPECIFIED HYPOTHYROIDISM Assessment/Plan Current Active Problems Abdominal pain (Acute) Acute diverticulitis (Acute) Colitis (Acute) Diverticulitis large intestine (Acute) Diverticulitis of colon with perforation (Acute) Diverticulosis (Acute) Enteritis (Acute) Other specified hypothyroidism (Acute) Small bowel obstruction (Acute) Status post cholecystectomy (Acute) hypothyroidism briseyda Abnormal Lab Results 01/29/17 01/29/17 01/29/17 05:20 05:20 05:20 WBC 10.3 H Neutrophils % 87.3 H Lymphocytes % 7.8 L D Monocytes % 3.7 L ESR BUN 5 L D Creatinine 0.5 L Calcium 8.1 L Alkaline Phosphatase 146 H C-Reactive Protein 17.2 H Total Protein 5.6 L Albumin 2.7 L D TSH 4.06 H D 01/29/17 05:20 WBC Neutrophils % Lymphocytes % Monocytes % ESR 45 H BUN Creatinine Calcium Alkaline Phosphatase C-Reactive Protein Total Protein Albumin TSH plan: iv synthroid till po tolerated Current Medications Generic Name Dose Route Start Last Admin Trade Name Anne PRN Reason Stop Dose Admin Acetaminophen 1,000 mg 01/29/17 10:27 01/29/17 13:40 Ofirmev Injection - IVPB 01/30/17 04:28 1,000 mg Q6H PRN Administration FEVER OR PAIN Enoxaparin Sodium 40 mg 01/28/17 11:15 01/29/17 09:05 Lovenox - SQ 40 mg DAILY [facility] Administration Metronidazole 100 mls @ 100 mls/hr 01/28/17 10:00 01/29/17 18:27 Flagyl 500mg Premixed Ivpb - IVPB 100 mls/hr Q8H-IV [facility] Administration Levofloxacin 100 mls @ 100 mls/hr 01/28/17 10:00 01/29/17 09:30 Levaquin 500 Mg Premixed Ivpb - IVPB 100 mls/hr DAILY [facility] Administration Dextrose/Sodium Chloride 1,000 mls @ 100 mls/hr 01/29/17 10:30 01/29/17 11:10 Dextrose 5%-Normal Saline+20 Meq Kcl - IV 100 mls/hr ASDIR [facility] Administration Levothyroxine Sodium 50 mcg 01/30/17 00:23 Synthroid Injection - IVPUSH DAILY [facility] Metoprolol Tartrate 5 mg 01/28/17 03:09 Lopressor Injection - IVPUSH Q4H PRN HYPERTENSION Morphine Sulfate 2 mg 01/29/17 10:26 01/29/17 11:04 Morphine Injection - IVPUSH 2 mg Q3H PRN Administration PAIN Ondansetron HCl 8 mg 01/29/17 10:27 01/29/17 18:26 Zofran Injection IVPUSH 8 mg Q6H PRN Administration NAUSEA AND/OR VOMITING Pantoprazole Sodium 40 mg 01/28/17 10:00 01/29/17 09:05 Protonix 40mg Ivpb (Pre-Docked) IVPB 40 mg DAILY [facility] Administration
[2017-01-30] MEDS: METRONIDAZOLE 500 MG PREMIXED 100 ML IVPB SCH ×3 (01:30→17:10)
[2017-01-30] MEDS: D5-NS + 20 MEQ KCL - 1,000 ML IV SCH ×3 (03:00→16:03)
[2017-01-30] MEDS: ONDANSETRON 4 MG/2 ML VIAL IVPUSH PRN (05:50)
[2017-01-30 05:54] LABS: BASOPHIL 0.3 % (0-2.0); EOSINOPHIL 2.3 % (0-4.5); MCH 28.4 pg (25.7-33.7); MCHC 32.8 g/dl (32.0-36.0); MEAN CELL VOLUME 86.6 fl (80-96); MEAN PLT VOLUME 7.6 fl (7.5-11.1); NEUTROPHILS 80.8 % (42.8-82.8); PLATELET COUNT 317 K/MM3 (134-434); RDW 13.7 % (11.6-15.6); WHITE BLOOD COUNT 8.6 K/mm3 (4.0-10.0)
[2017-01-30 06:15] LABS: ALBUMIN 2.8 g/dl (3.4-5.0); ANION GAP 8 (8-16); BILIRUBIN,TOTAL 0.4 mg/dL (0.2-1.0); CALCIUM 8.5 mg/dL (8.5-10.1); CO2 27 mmol/L (21-32); CREATININE 0.6 mg/dL (0.55-1.02); GLUCOSE,RANDOM 102 mg/dL (74-106); SGOT/AST 15 U/L (15-37); SGPT/ALT 46 U/L (12-78); TOT PROT 5.8 g/dl (6.4-8.2)
[2017-01-30 06:16] LABS: ALK PHOS 159 U/L (45-117)
--- NOTE | 2017-01-30 08:39 | PN ---
Progress Note, Physician History of Present Illness: 4th day on flagyl and levofloxacin still NPO. White count back to Normal, neutrophilia down. Has not had any pain meds today (acetaminophen script exhausted, LFTs show high alk phosphate but normal AST and ALT), has dull periumbilical pain which is improving Had 2 episodes of vomiting from yesterday, one last night and one this morning, with associated retching, yellowish, non bloody Had a bowel movement of loose brown stool this am, no pus, non bloody Able to get in and out of bed with some pain but ambulating Last dose of narcotics was yesterday, no fevers or chills - Current Medication List Current Medications: Active Medications Enoxaparin Sodium (Lovenox -) 40 mg SQ DAILY [facility] Last Admin: 01/29/17 09:05 Dose: 40 mg Metronidazole (Flagyl 500mg Premixed Ivpb -) 100 mls @ 100 mls/hr IVPB Q8H-IV [facility] Last Admin: 01/30/17 01:30 Dose: 100 mls/hr Levofloxacin (Levaquin 500 Mg Premixed Ivpb -) 100 mls @ 100 mls/hr IVPB DAILY [facility] Last Admin: 01/29/17 09:30 Dose: 100 mls/hr Dextrose/Sodium Chloride (Dextrose 5%-Normal Saline+20 Meq Kcl -) 1,000 mls @ 100 mls/hr IV ASDIR [facility] Last Admin: 01/30/17 03:00 Dose: 100 mls/hr Levothyroxine Sodium (Synthroid Injection -) 50 mcg IVPUSH DAILY [facility] Metoprolol Tartrate (Lopressor Injection -) 5 mg IVPUSH Q4H PRN PRN Reason: HYPERTENSION Morphine Sulfate (Morphine Injection -) 2 mg IVPUSH Q3H PRN PRN Reason: PAIN Last Admin: 01/29/17 11:04 Dose: 2 mg Ondansetron HCl (Zofran Injection) 8 mg IVPUSH Q6H PRN PRN Reason: NAUSEA AND/OR VOMITING Last Admin: 01/30/17 05:50 Dose: 8 mg Pantoprazole Sodium (Protonix 40mg Ivpb (Pre-Docked)) 40 mg IVPB DAILY [facility] Last Admin: 01/29/17 09:05 Dose: 40 mg - Objective Vital Signs: Vital Signs Temperature 98.6 F 01/30/17 06:00 Pulse Rate 78 01/30/17 08:00 Respiratory Rate 18 01/30/17 08:00 Blood Pressure 147/92 01/30/17 08:00 O2 Sat by Pulse Oximetry (%) 99 01/30/17 08:26 Constitutional: Yes: Calm. No: Diaphoresis, Pallor Eyes: Yes: Conjunctiva Clear, EOM Intact HENT: Yes: Atraumatic. No: Hoarseness, Pharyngeal Erythema, Rhinnorhea, Thrush Neck: Yes: Supple. No: Rigid, Tenderness Cardiovascular: Yes: Regular Rate and Rhythm, S1, S2 Respiratory: No: On Nasal O2, Rales, Rhonchi, SOB, Tachypnea, Wheezes Gastrointestinal: Yes: Abdomen, Obese, Hypoactive Bowel Sounds (Bowel sounds present), Vomiting (One episode of vomitting last night, repeated retching overnight, then a second episode of yellowish vomit this am. Non bloody.). No: Palpable Mass, Tenderness, Rebound (Mild Periumbilical and suprapubic tendernes) ...Rectal Exam: Yes: Deferred Genitourinary: No: Samuels Present Musculoskeletal: No: Joint Stiffness, Joint Swelling Edema: No Neurological: Yes: Alert, Oriented. No: Confusion Labs: CBC, BMP 01/30/17 05:10 01/30/17 05:10 Problem List - Problems (1) Acute diverticulitis Assessment/Plan: Acute diverticulitis with rupture and localized pnuemoperitoneum R/O Merkels diverticulum Code(s): K57.92 - DVTRCLI OF INTEST, PART UNSP, W/O PERF OR ABSCESS W/O BLEED (2) Small bowel obstruction Assessment/Plan: Inflammed small bowel on imaging , some improvement, passed loose stool today Code(s): K56.69 - OTHER INTESTINAL OBSTRUCTION (3) Status post cholecystectomy Code(s): Z90.49 - ACQUIRED ABSENCE OF OTHER SPECIFIED PARTS OF DIGESTIVE TRACT Impression/Plan Impression/Plan: remaining afebrile, dropping WBC, Preliminary blood culture results shows no growth Had an episode of loose brown stool this am,but vomited twice since last night Plan: Continue levofloxacin and flagyl Visit type - Emergency Visit Emergency Visit: No - New Patient This patient is new to me today: No - Critical Care Critical Care patient: No - Discharge Referral Referred to [facility] No
[2017-01-30] MEDS ORDERED: ACETAMINOPHEN 1000 MG/100 ML VIAL (NON FORMULARY) IVPB PRN (08:48)
[2017-01-30] MEDS ORDERED: PT OWN MED DRAWER 7, Y5N ONE (09:23)
[2017-01-30] MEDS: ENOXAPARIN NA (PORCINE) 40 MG/0.4 ML DISP.SYRIN SQ SCH (09:27)
[2017-01-30] MEDS: LEVOTHYROXINE SODIUM 100 MCG VIAL IVPUSH SCH (09:27)
[2017-01-30] MEDS: LEVOFLOXACIN 500 MG IVPB 100 ML IVPB SCH (09:33)
--- NOTE | 2017-01-30 09:40 | PN ---
Physical Exam: SUBJECTIVE: Patient seen and examined at bedside in ICU. Pt feels better today after her last BM this morning. BM was diarrheal in nature but with no blood. Pt vomited yesterday which was yellow with no blood. She states she had a copious amount of vomiting yesterday. She still has pain in periumbilical region which is worse with movement and rated as a 3/10 when moving. Denies fevers, chills, chest pain, sob. OBJECTIVE: Vital Signs Temperature 98.6 F 01/30/17 06:00 Pulse Rate 80 01/30/17 08:35 Respiratory Rate 18 01/30/17 08:35 Blood Pressure 137/90 01/30/17 08:35 O2 Sat by Pulse Oximetry (%) 99 01/30/17 08:26 GENERAL: The patient is awake, alert, and fully oriented, in no acute distress. HEAD: Normal with no signs of trauma. EYES: extraocular movements intact, sclera anicteric, conjunctiva clear. No ptosis. ENT: Ears normal, nares patent NECK: Trachea midline LUNGS: Breath sounds equal, clear to auscultation bilaterally, no wheezes HEART: Regular rate and rhythm, S1, S2 without murmur, rub or gallop. ABDOMEN: +periumbilical tenderness, Soft, nondistended, normoactive bowel sounds EXTREMITIES: warm, well-perfused NEUROLOGICAL: Cranial nerves II through XII grossly intact. Normal speech, normal gait. PSYCH: Normal mood, normal affect. SKIN: Warm, dry Laboratory Results - last 24 hr 01/29/17 01/30/17 01/30/17 05:20 05:10 05:10 WBC 8.6 RBC 3.83 Hgb 10.9 Hct 33.2 MCV 86.6 MCH 28.4 MCHC 32.8 RDW 13.7 Plt Count 317 MPV 7.6 Neutrophils % 80.8 Lymphocytes % 12.6 D Monocytes % 4.0 Eosinophils % 2.3 D Basophils % 0.3 Sodium 142 143 Potassium 3.8 3.7 Chloride 107 108 H Carbon Dioxide 25 27 Anion Gap 10 8 BUN 5 L D 5 L Creatinine 0.5 L 0.6 Creat Clearance w eGFR > 60 > 60 Random Glucose 95 102 Calcium 8.1 L 8.5 Total Bilirubin 0.9 D 0.4 D AST 37 D 15 D ALT 59 46 D Alkaline Phosphatase 146 H 159 H Total Protein 5.6 L 5.8 L Albumin 2.7 L D 2.8 L TSH 4.06 H D Free T4 1.15 D Microbiology 01/28/17 15:10 Blood - Peripheral Venous Blood Culture - Preliminary NO GROWTH OBTAINED AFTER 24 HOURS, INCUBATION TO CONTINUE FOR 4 DAYS. 01/28/17 15:20 Blood - Peripheral Venous Blood Culture - Preliminary NO GROWTH OBTAINED AFTER 24 HOURS, INCUBATION TO CONTINUE FOR 4 DAYS. Active Medications Generic Name Dose Route Start Last Admin Trade Name Anne PRN Reason Stop Dose Admin Acetaminophen 1,000 mg 01/30/17 08:48 Ofirmev Injection - IVPB 01/31/17 02:49 Q6H PRN FEVER OR PAIN Enoxaparin Sodium 40 mg 01/28/17 11:15 01/29/17 09:05 Lovenox - SQ 40 mg DAILY [facility] Administration Metronidazole 100 mls @ 100 mls/hr 01/28/17 10:00 01/30/17 01:30 Flagyl 500mg Premixed Ivpb - IVPB 100 mls/hr Q8H-IV [facility] Administration Levofloxacin 100 mls @ 100 mls/hr 01/28/17 10:00 01/29/17 09:30 Levaquin 500 Mg Premixed Ivpb - IVPB 100 mls/hr DAILY [facility] Administration Dextrose/Sodium Chloride 1,000 mls @ 100 mls/hr 01/29/17 10:30 01/30/17 03:00 Dextrose 5%-Normal Saline+20 Meq Kcl - IV 100 mls/hr [facility] Administration Levothyroxine Sodium 50 mcg 01/30/17 00:23 Synthroid Injection - IVPUSH DAILY [facility] Metoprolol Tartrate 5 mg 01/28/17 03:09 Lopressor Injection - IVPUSH Q4H PRN HYPERTENSION Morphine Sulfate 2 mg 01/29/17 10:26 01/29/17 11:04 Morphine Injection - IVPUSH 2 mg Q3H PRN Administration PAIN Ondansetron HCl 8 mg 01/29/17 10:27 01/30/17 05:50 Zofran Injection IVPUSH 8 mg Q6H PRN Administration NAUSEA AND/OR VOMITING Pantoprazole Sodium 40 mg 01/28/17 10:00 01/29/17 09:05 Protonix 40mg Ivpb (Pre-Docked) IVPB 40 mg DAILY [facility] Administration ASSESSMENT/PLAN: 51 y/o F with PMH of HTN, hypothyroidism presented to ER with 10/10 mid abdominal pain with sudden onset. Admitted to ICU for diverticulitis w/ perforation. Neuro: Mental status intact Abd: Abdominal pain likely secondary to diverticulitis w/perforation -Repeat CT scan will need to be considered. -Surgery on board, ID on board, GI on board -f/u C. Diff, stool cultures -c/w levaquin and flagyl -pain control with Ofirmev 1g IV q6h PRN, morphine 2mg IV q3h PRN -D5-1/2NS +20meq KCl @ 100 ml/hr -Protonix 40 mg IVPB qd -Zofran 8mg IV q6h PRN for nausea Endocrine Hypothyroidism -synthroid 50 mcg daily. Cardio HTN -c/w lopressor 5 mg IV q4h prn for htn Prophylaxis -DVT: lovenox 40 mg sq qd -GI: Protonix 40 mg IV qd FEN -D5-1/2 NS + 20meq KCl @ 100ml/hr -Monitor electrolytes, replete as necessary -NPO Dispo: continue to monitor in ICU Problem List - Problems (1) Abdominal pain Code(s): R10.9 - UNSPECIFIED ABDOMINAL PAIN Qualifiers: Abdominal location: periumbilical Qualified Code(s): R10.33 - Periumbilical pain (2) Acute diverticulitis Code(s): K57.92 - DVTRCLI OF INTEST, PART UNSP, W/O PERF OR ABSCESS W/O BLEED (3) Colitis Code(s): K52.9 - NONINFECTIVE GASTROENTERITIS AND COLITIS, UNSPECIFIED (4) Other specified hypothyroidism Code(s): E03.8 - OTHER SPECIFIED HYPOTHYROIDISM Visit type - Emergency Visit Emergency Visit: Yes ED Registration Date: 01/27/17 Care time: The patient presented to the Emergency Department on the above date and was hospitalized for further evaluation of their emergent condition. - New Patient This patient is new to me today: No - Critical Care Critical Care patient: Yes Total Critical Care Time (in minutes): 35 Critical Care Statement: The care of this patient involved high complexity decision making to prevent further life threatening deterioration of the patient 's condition and/or to evalute & treat vital organ system(s) failure or risk of failure.
--- NOTE | 2017-01-30 10:35 | PN ---
Teaching Attending Note Name of Resident: Nu Villegas ATTENDING PHYSICIAN STATEMENT I saw and evaluated the patient. I reviewed the resident's note and discussed the case with the resident. I agree with the resident's findings and plan as documented. SUBJECTIVE: OOB in chair No c/o abdominal pain + loose, non-bloody stool No N/V Afebrile WBC WNL OBJECTIVE: Cor S1S2 Lungs clear Abdo soft, non tender ASSESSMENT AND PLAN: Probable acute complicated diverticulitis- improved Clinically improved Continue empiric levaquin/ flagyl
--- NOTE | 2017-01-30 10:45 | PN ---
Progress Note, Physician Chief Complaint: Abdominal pain History of Present Illness: Mild discomfort this am in hypogastric/suprapubic region, mild nausea after receiving morphine for pain, felt better after receiving zofran IVPB, has family hx of diverticulosis on mothers side. No previous episode. No colonoscopy in the past. Had solid BM this AM-likely no cdiff present, +flatulence, seen by surgery, no sx recommended at this time. NPO. - Current Medication List Current Medications: Active Medications Acetaminophen (Ofirmev Injection -) 1,000 mg IVPB Q6H PRN PRN Reason: FEVER OR PAIN Stop: 01/31/17 02:49 Last Admin: 01/30/17 09:04 Dose: 1,000 mg Enoxaparin Sodium (Lovenox -) 40 mg SQ DAILY [facility] Last Admin: 01/30/17 09:27 Dose: 40 mg Metronidazole (Flagyl 500mg Premixed Ivpb -) 100 mls @ 100 mls/hr IVPB Q8H-IV [facility] Last Admin: 01/30/17 01:30 Dose: 100 mls/hr Levofloxacin (Levaquin 500 Mg Premixed Ivpb -) 100 mls @ 100 mls/hr IVPB DAILY [facility] Last Admin: 01/30/17 09:33 Dose: 100 mls/hr Dextrose/Sodium Chloride (Dextrose 5%-Normal Saline+20 Meq Kcl -) 1,000 mls @ 100 mls/hr IV ASDIR [facility] Last Admin: 01/30/17 03:00 Dose: 100 mls/hr Levothyroxine Sodium (Synthroid Injection -) 50 mcg IVPUSH DAILY [facility] Last Admin: 01/30/17 09:27 Dose: 50 mcg Metoprolol Tartrate (Lopressor Injection -) 5 mg IVPUSH Q4H PRN PRN Reason: HYPERTENSION Morphine Sulfate (Morphine Injection -) 2 mg IVPUSH Q3H PRN PRN Reason: PAIN Last Admin: 01/29/17 11:04 Dose: 2 mg Ondansetron HCl (Zofran Injection) 8 mg IVPUSH Q6H PRN PRN Reason: NAUSEA AND/OR VOMITING Last Admin: 01/30/17 05:50 Dose: 8 mg Pantoprazole Sodium (Protonix 40mg Ivpb (Pre-Docked)) 40 mg IVPB DAILY [facility] Last Admin: 01/29/17 09:05 Dose: 40 mg - Objective Vital Signs: Vital Signs Temperature 98.3 F 01/30/17 10:00 Pulse Rate 72 01/30/17 10:00 Respiratory Rate 18 01/30/17 10:00 Blood Pressure 136/90 01/30/17 10:00 O2 Sat by Pulse Oximetry (%) 99 01/30/17 08:26 Constitutional: Yes: Well Nourished, No Distress, Calm Cardiovascular: Yes: Regular Rate and Rhythm Respiratory: Yes: Regular Gastrointestinal: Yes: Hyperactive Bowel Sounds, Tenderness (periumbilical and suprapubic region) Musculoskeletal: Yes: WNL Extremities: Yes: WNL Edema: No Peripheral Pulses WNL: Yes Neurological: Yes: Alert, Oriented Psychiatric: Yes: Alert, Oriented Labs: CBC, BMP 01/30/17 05:10 01/30/17 05:10 Problem List - Problems (1) Abdominal pain Assessment/Plan: -pain management -NPO -IVF -IV abx -had loose BM today, unable to obtain the sample -vomitus x 2 today, bile components, feels better after Code(s): R10.9 - UNSPECIFIED ABDOMINAL PAIN Qualifiers: Qualified Code(s): R10.33 - Periumbilical pain (2) Acute diverticulitis Assessment/Plan: -seen by GI and surgery, no intervention recommended at this time. Code(s): K57.92 - DVTRCLI OF INTEST, PART UNSP, W/O PERF OR ABSCESS W/O BLEED (3) Other specified hypothyroidism Assessment/Plan: start IV levothyroxine, recommended dosing 50-70% of PO dose. -on 50 mcg IV levothyroxine as per endocrinology Code(s): E03.8 - OTHER SPECIFIED HYPOTHYROIDISM Assessment/Plan . -IV abx -IVF -NPO -Pain management with IV acetaminophen and morphine as needed -Antiemetic-zofran increased -PPI -DVT prophylaxis -IV levothyroxine at 50 mcg -seen by surgery and endocrinology
--- NOTE | 2017-01-30 11:11 | PN ---
Teaching Attending Note Name of Resident: Luis Lim ATTENDING PHYSICIAN STATEMENT I saw and evaluated the patient. I reviewed the resident's note and discussed the case with the resident. I agree with the resident's findings and plan as documented. SUBJECTIVE: Pt seen and examined in the ICU. Abdominal pain improving. Had loose BM this AM. No fevers or chills. No nausea or vomiting. OBJECTIVE: Last Vital Signs Temp Pulse Resp BP Pulse Ox 98.3 F 72 18 136/90 99 01/30/17 10:00 01/30/17 10:00 01/30/17 10:00 01/30/17 10:00 01/30/17 08:26 Intake & Output 01/27/17 01/28/17 01/29/17 01/30/17 23:59 23:59 23:59 23:59 Intake Total 3250 3250 1200 Output Total 200 225 Balance 3050 3025 1200 Weight 245 lb 2.464 oz 245 lb 2.464 oz 243 lb 11.2 oz 243 lb 1.6 oz Gen: NAD at rest Heart: RRR Lung: decreased breath sounds at the bases Abd: soft, mild TTP periumbilical, no rebound Ext: no edema CBC, BMP 01/30/17 05:10 01/30/17 05:10 Active Medications Acetaminophen (Ofirmev Injection -) 1,000 mg IVPB Q6H PRN PRN Reason: FEVER OR PAIN Stop: 01/31/17 02:49 Last Admin: 01/30/17 09:04 Dose: 1,000 mg Enoxaparin Sodium (Lovenox -) 40 mg SQ DAILY [facility] Last Admin: 01/30/17 09:27 Dose: 40 mg Metronidazole (Flagyl 500mg Premixed Ivpb -) 100 mls @ 100 mls/hr IVPB Q8H-IV [facility] Last Admin: 01/30/17 10:31 Dose: 100 mls/hr Levofloxacin (Levaquin 500 Mg Premixed Ivpb -) 100 mls @ 100 mls/hr IVPB DAILY [facility] Last Admin: 01/30/17 09:33 Dose: 100 mls/hr Dextrose/Sodium Chloride (Dextrose 5%-Normal Saline+20 Meq Kcl -) 1,000 mls @ 100 mls/hr IV ASDIR [facility] Last Admin: 01/30/17 03:00 Dose: 100 mls/hr Levothyroxine Sodium (Synthroid Injection -) 50 mcg IVPUSH DAILY [facility] Last Admin: 01/30/17 09:27 Dose: 50 mcg Metoprolol Tartrate (Lopressor Injection -) 5 mg IVPUSH Q4H PRN PRN Reason: HYPERTENSION Morphine Sulfate (Morphine Injection -) 2 mg IVPUSH Q3H PRN PRN Reason: PAIN Last Admin: 01/29/17 11:04 Dose: 2 mg Ondansetron HCl (Zofran Injection) 8 mg IVPUSH Q6H PRN PRN Reason: NAUSEA AND/OR VOMITING Last Admin: 01/30/17 05:50 Dose: 8 mg Pantoprazole Sodium (Protonix 40mg Ivpb (Pre-Docked)) 40 mg IVPB DAILY [facility] Last Admin: 01/29/17 09:05 Dose: 40 mg ASSESSMENT AND PLAN: Abdominal Pain r/o Diverticulitis HTN Hypothyroidism Mitral Valve Prolapse - continue empiric antibiotics - f/u cultures - serial abdominal exams - pain control - antiemetics - incentive spirometry - NPO - continue IVF - repeat imaging per GI/surgery - DVT prophylaxis
[2017-01-30] MEDS: PANTOPRAZOLE SODIUM 40 MG/100 ML PRE-DOCKED IVPB SCH (11:43)
--- NOTE | 2017-01-30 14:44 | PN ---
Progress Note (short form) - Note Progress Note: No acute events Pain improved NPO +BM Vital Signs Period Temp Pulse Resp BP Sys/Coy Pulse Ox Last 24 Hr 98.3 F-99.0 F 62-95 14-24 126-149/80-92 99 ABd soft, minimal tenderness, no rebound CBC, BMP 01/30/17 05:10 01/30/17 05:10 Antibiotics IV fluids Possible repeat CT- if improved clears Problem List - Problems (1) Abdominal pain Code(s): R10.9 - UNSPECIFIED ABDOMINAL PAIN Qualifiers: Abdominal location: periumbilical Qualified Code(s): R10.33 - Periumbilical pain
--- NOTE | 2017-01-30 17:39 | PN ---
GI Progress Note Subjective: GASTROENTEROLOGY FEELS MUCH BETTER HAD TWO SMALL BM TODAY PASSED A LOT OF FLATUS WBC NOW NORMAL STILL NPO SEEN BY SURGERY - Objective Vital Signs: Vital Signs Temperature 98 F 01/30/17 15:00 Pulse Rate 70 01/30/17 15:00 Respiratory Rate 18 01/30/17 15:00 Blood Pressure 142/89 01/30/17 15:00 O2 Sat by Pulse Oximetry (%) 99 01/30/17 08:26 Constitutional: No Distress, Obese Eyes: Yes: Conjunctiva Clear HENT: Yes: Normocephalic Cardiovascular: Yes: Regular Rate and Rhythm Respiratory: Yes: Regular Gastrointestinal Inspection: Yes: WNL ...Auscultate: Yes: Hypoactive Bowel Sounds ...Palpate: Yes: Soft Extremities: Yes: WNL Neurological: Yes: Alert, Oriented Labs: CBC, BMP 01/30/17 05:10 01/30/17 05:10 Problem List - Problems (1) Diverticulitis of colon with perforation Assessment/Plan: CONTINUE SAME CK ESR/CRP IN AM FOR CT ENTEROGRAPHY TOMORROW IF BETTER START DIET ICU TIME: 30 MINUTES Code(s): K57.20 - DVTRCLI OF LG INT W PERFORATION AND ABSCESS W/O BLEEDING (2) Enteritis Code(s): K52.9 - NONINFECTIVE GASTROENTERITIS AND COLITIS, UNSPECIFIED (3) Diverticulosis Code(s): K57.90 - DVRTCLOS OF INTEST, PART UNSP, W/O PERF OR ABSCESS W/O BLEED (4) Abdominal pain Code(s): R10.9 - UNSPECIFIED ABDOMINAL PAIN Qualifiers: Abdominal location: periumbilical Qualified Code(s): R10.33 - Periumbilical pain (5) Other specified hypothyroidism Code(s): E03.8 - OTHER SPECIFIED HYPOTHYROIDISM
[2017-01-31] MEDS: D5-NS + 20 MEQ KCL - 1,000 ML IV SCH ×2 (01:52→18:04)
[2017-01-31] MEDS: METRONIDAZOLE 500 MG PREMIXED 100 ML IVPB SCH ×4 (01:52→18:15)
[2017-01-31] MEDS ORDERED: ACETAMINOPHEN 1000 MG/100 ML VIAL (NON FORMULARY) IVPB PRN (04:21)
[2017-01-31 05:40] LABS: MCH 28.6 pg (25.7-33.7); MCHC 32.8 g/dl (32.0-36.0); MEAN PLT VOLUME 7.1 fl (7.5-11.1); PLATELET COUNT 336 K/MM3 (134-434); RDW 13.5 % (11.6-15.6); WHITE BLOOD COUNT 5.9 K/mm3 (4.0-10.0)
[2017-01-31 06:06] LABS: ALBUMIN 2.5 g/dl (3.4-5.0); ANION GAP 5 (8-16); BILIRUBIN,TOTAL 0.3 mg/dL (0.2-1.0); CALCIUM 8.2 mg/dL (8.5-10.1); CO2 28 mmol/L (21-32); CREATININE 0.6 mg/dL (0.55-1.02); GLUCOSE,RANDOM 105 mg/dL (74-106); SGOT/AST 15 U/L (15-37); SGPT/ALT 34 U/L (12-78); TOT PROT 5.2 g/dl (6.4-8.2)
[2017-01-31 06:08] LABS: ALK PHOS 146 U/L (45-117)
--- NOTE | 2017-01-31 09:44 | PN ---
Progress Note, Physician History of Present Illness: 5th day on flagyl and levofloxacin still NPO. Feels much better, no new complaints, no fevers or chills Looking forward to eating No vomiting, had a bowel movement this am Pain level today 08/30, Preliminary blood culture negative awaiting C diff toxin and stool gram stain and culture Scheduled for CT scan of abdomen per GI - Current Medication List Current Medications: Active Medications Acetaminophen (Ofirmev Injection -) 1,000 mg IVPB Q6H PRN PRN Reason: FEVER OR PAIN Stop: 01/31/17 22:22 Last Admin: 01/31/17 03:40 Dose: 1,000 mg Enoxaparin Sodium (Lovenox -) 40 mg SQ DAILY [facility] Last Admin: 01/30/17 09:27 Dose: 40 mg Metronidazole (Flagyl 500mg Premixed Ivpb -) 100 mls @ 100 mls/hr IVPB Q8H-IV [facility] Last Admin: 01/31/17 01:52 Dose: 100 mls/hr Levofloxacin (Levaquin 500 Mg Premixed Ivpb -) 100 mls @ 100 mls/hr IVPB DAILY [facility] Last Admin: 01/30/17 09:33 Dose: 100 mls/hr Dextrose/Sodium Chloride (Dextrose 5%-Normal Saline+20 Meq Kcl -) 1,000 mls @ 100 mls/hr IV ASDIR [facility] Last Admin: 01/31/17 01:52 Dose: 100 mls/hr Levothyroxine Sodium (Synthroid Injection -) 50 mcg IVPUSH DAILY [facility] Last Admin: 01/30/17 09:27 Dose: 50 mcg Metoprolol Tartrate (Lopressor Injection -) 5 mg IVPUSH Q4H PRN PRN Reason: HYPERTENSION Morphine Sulfate (Morphine Injection -) 2 mg IVPUSH Q3H PRN PRN Reason: PAIN Last Admin: 01/29/17 11:04 Dose: 2 mg Ondansetron HCl (Zofran Injection) 8 mg IVPUSH Q6H PRN PRN Reason: NAUSEA AND/OR VOMITING Last Admin: 01/30/17 05:50 Dose: 8 mg Pantoprazole Sodium (Protonix 40mg Ivpb (Pre-Docked)) 40 mg IVPB DAILY [facility] Last Admin: 01/30/17 11:43 Dose: 40 mg - Objective Vital Signs: Vital Signs Temperature 97.6 F 01/31/17 06:00 Pulse Rate 74 01/31/17 06:00 Respiratory Rate 18 01/31/17 06:00 Blood Pressure 156/100 01/31/17 06:00 O2 Sat by Pulse Oximetry (%) 99 01/30/17 19:38 Constitutional: Yes: Calm, Obese Eyes: Yes: Conjunctiva Clear. No: Sclera Icterus HENT: Yes: Atraumatic. No: Drooling, Epistaxis, Hoarseness, Nasal Congestion, Pharyngeal Erythema, Rhinnorhea, Thrush, Tonsillar Exudate Neck: Yes: Supple. No: Rigid, Tenderness Cardiovascular: Yes: S1, S2. No: Murmur Respiratory: Yes: CTA Bilaterally. No: On BiPap, On Nasal O2, On Venti-Mask, Rales, Rhonchi, SOB, Tachypnea Gastrointestinal: Yes: Normal Bowel Sounds, Soft, Abdomen, Obese, Tenderness ( mild tenderness suprapubic region, right hypochondrial) ...Rectal Exam: Yes: Deferred Genitourinary: Yes: CVA Tenderness - Left. No: CVA Tenderness - Right, Samuels Present, Oliguria Edema: No Neurological: Yes: Alert, Oriented Psychiatric: Yes: Alert, Oriented Labs: CBC, BMP 01/31/17 05:05 01/31/17 05:05 Problem List - Problems (1) Acute diverticulitis Assessment/Plan: Acute diverticulitis with rupture and localized pnuemoperitoneum R/O Merkels diverticulum Code(s): K57.92 - DVTRCLI OF INTEST, PART UNSP, W/O PERF OR ABSCESS W/O BLEED (2) Small bowel obstruction Assessment/Plan: Inflammed small bowel on imaging , some improvement, passed loose stool today Code(s): K56.69 - OTHER INTESTINAL OBSTRUCTION Impression/Plan Impression/Plan: 5th day on flagy and levoquin still NPO for ruptured diverticulum feels better, pain markedly reduced, moved bowel this am For CT abdomen Visit type - Emergency Visit Emergency Visit: No - New Patient This patient is new to me today: No - Critical Care Critical Care patient: No - Discharge Referral Referred to [facility] No
[2017-01-31] MEDS: LEVOFLOXACIN 500 MG IVPB 100 ML IVPB SCH (10:10)
[2017-01-31] MEDS: ENOXAPARIN NA (PORCINE) 40 MG/0.4 ML DISP.SYRIN SQ SCH (10:10)
[2017-01-31] MEDS: PANTOPRAZOLE SODIUM 40 MG/100 ML PRE-DOCKED IVPB SCH (10:11)
[2017-01-31] MEDS ORDERED: PT OWN MED DRAWER 7, Y5N ONE (10:13)
[2017-01-31] MEDS: LEVOTHYROXINE SODIUM 100 MCG VIAL IVPUSH SCH (10:14)
--- NOTE | 2017-01-31 10:25 | PN ---
Progress Note, Physician Chief Complaint: Abdominal pain History of Present Illness: Mild discomfort this am in hypogastric/suprapubic region, mild nausea after receiving morphine for pain, felt better after receiving zofran IVPB, has family hx of diverticulosis on mothers side. No previous episode. No colonoscopy in the past. Had solid BM this AM-likely no cdiff present, +flatulence, seen by surgery, no sx recommended at this time. Stool culture, c diff pending. - Current Medication List Current Medications: Active Medications Acetaminophen (Ofirmev Injection -) 1,000 mg IVPB Q6H PRN PRN Reason: FEVER OR PAIN Stop: 01/31/17 22:22 Last Admin: 01/31/17 03:40 Dose: 1,000 mg Enoxaparin Sodium (Lovenox -) 40 mg SQ DAILY [facility] Last Admin: 01/31/17 10:10 Dose: 40 mg Metronidazole (Flagyl 500mg Premixed Ivpb -) 100 mls @ 100 mls/hr IVPB Q8H-IV [facility] Last Admin: 01/31/17 10:10 Dose: 100 mls/hr Levofloxacin (Levaquin 500 Mg Premixed Ivpb -) 100 mls @ 100 mls/hr IVPB DAILY [facility] Last Admin: 01/31/17 10:10 Dose: 100 mls/hr Dextrose/Sodium Chloride (Dextrose 5%-Normal Saline+20 Meq Kcl -) 1,000 mls @ 100 mls/hr IV ASDIR [facility] Last Admin: 01/31/17 01:52 Dose: 100 mls/hr Levothyroxine Sodium (Synthroid Injection -) 50 mcg IVPUSH DAILY [facility] Last Admin: 01/31/17 10:14 Dose: 50 mcg Metoprolol Tartrate (Lopressor Injection -) 5 mg IVPUSH Q4H PRN PRN Reason: HYPERTENSION Morphine Sulfate (Morphine Injection -) 2 mg IVPUSH Q3H PRN PRN Reason: PAIN Last Admin: 01/29/17 11:04 Dose: 2 mg Ondansetron HCl (Zofran Injection) 8 mg IVPUSH Q6H PRN PRN Reason: NAUSEA AND/OR VOMITING Last Admin: 01/30/17 05:50 Dose: 8 mg Pantoprazole Sodium (Protonix 40mg Ivpb (Pre-Docked)) 40 mg IVPB DAILY [facility] Last Admin: 01/31/17 10:11 Dose: 40 mg - Objective Vital Signs: Vital Signs Temperature 97.6 F 01/31/17 06:00 Pulse Rate 74 01/31/17 06:00 Respiratory Rate 18 01/31/17 06:00 Blood Pressure 156/100 01/31/17 06:00 O2 Sat by Pulse Oximetry (%) 99 01/30/17 19:38 Constitutional: Yes: Well Nourished, No Distress, Calm Cardiovascular: Yes: Regular Rate and Rhythm Respiratory: Yes: Regular Gastrointestinal: Yes: Hyperactive Bowel Sounds Musculoskeletal: Yes: WNL Extremities: Yes: WNL Edema: No Peripheral Pulses WNL: Yes Neurological: Yes: Alert, Oriented Psychiatric: Yes: Alert, Oriented Labs: CBC, BMP 01/31/17 05:05 01/31/17 05:05 Problem List - Problems (1) Abdominal pain Assessment/Plan: -much better today -pain management -IVF -IV abx -had loose BM today -no vomiting today -going for CT enterography Code(s): R10.9 - UNSPECIFIED ABDOMINAL PAIN Qualifiers: Abdominal location: periumbilical Qualified Code(s): R10.33 - Periumbilical pain (2) Acute diverticulitis Assessment/Plan: -seen by GI and surgery, no intervention recommended at this time. Code(s): K57.92 - DVTRCLI OF INTEST, PART UNSP, W/O PERF OR ABSCESS W/O BLEED (3) Other specified hypothyroidism Assessment/Plan: on IV levothyroxine Code(s): E03.8 - OTHER SPECIFIED HYPOTHYROIDISM (4) Anemia Assessment/Plan: -check iron profile -stool OB -could be secondary to colon inflammation Code(s): D64.9 - ANEMIA, UNSPECIFIED Assessment/Plan . -IV abx -IVF -Pain management with IV acetaminophen and morphine as needed -Antiemetic-zofran increased -PPI -DVT prophylaxis -IV levothyroxine at 50 mcg -going for CT enterography today -seen by surgery and endocrinology -check stools and labs for anemia
--- NOTE | 2017-01-31 11:18 | PN ---
Teaching Attending Note Name of Resident: Nu Villegas ATTENDING PHYSICIAN STATEMENT I saw and evaluated the patient. I reviewed the resident's note and discussed the case with the resident. I agree with the resident's findings and plan as documented. SUBJECTIVE: OOB in chair Reports marked improvement in abdominal pain Remains NPO Repeat CT later today + soft BMs/ flatus No fever/ chills OBJECTIVE: Cor S1S2 Lungs clear Abdomen soft, mild periumbilical tenderness no edema ASSESSMENT AND PLAN: Probable acute complicated diverticulitis Continue empiric levaquin/ flagyl For repeat CT scan today
--- NOTE | 2017-01-31 11:53 | PN ---
Teaching Attending Note Name of Resident: Luis Lim ATTENDING PHYSICIAN STATEMENT I saw and evaluated the patient. I reviewed the resident's note and discussed the case with the resident. I agree with the resident's findings and plan as documented. SUBJECTIVE: Patient seen and examined in the ICU. Abdominal pain improving, but still with some discomfort in the low anterior region. (+) small BM/flatus. For repeat CT abdomen/pelvis. No CP or SOB. Intake & Output 01/28/17 01/29/17 01/30/17 01/31/17 23:59 23:59 23:59 23:59 Intake Total 3250 3250 2500 1300 Output Total 200 225 Balance 3050 3025 2500 1300 Weight 245 lb 2.464 oz 243 lb 11.2 oz 243 lb 1.6 oz Last Vital Signs Temp Pulse Resp BP Pulse Ox 97.6 F 74 18 156/100 99 01/31/17 06:00 01/31/17 06:00 01/31/17 06:00 01/31/17 06:00 01/30/17 19:38 Active Medications Acetaminophen (Ofirmev Injection -) 1,000 mg IVPB Q6H PRN PRN Reason: FEVER OR PAIN Stop: 01/31/17 22:22 Last Admin: 01/31/17 03:40 Dose: 1,000 mg Enoxaparin Sodium (Lovenox -) 40 mg SQ DAILY [facility] Last Admin: 01/31/17 10:10 Dose: 40 mg Metronidazole (Flagyl 500mg Premixed Ivpb -) 100 mls @ 100 mls/hr IVPB Q8H-IV [facility] Last Admin: 01/31/17 10:10 Dose: 100 mls/hr Levofloxacin (Levaquin 500 Mg Premixed Ivpb -) 100 mls @ 100 mls/hr IVPB DAILY [facility] Last Admin: 01/31/17 10:10 Dose: 100 mls/hr Dextrose/Sodium Chloride (Dextrose 5%-Normal Saline+20 Meq Kcl -) 1,000 mls @ 100 mls/hr IV ASDIR [facility] Last Admin: 01/31/17 01:52 Dose: 100 mls/hr Levothyroxine Sodium (Synthroid Injection -) 50 mcg IVPUSH DAILY [facility] Last Admin: 01/31/17 10:14 Dose: 50 mcg Metoprolol Tartrate (Lopressor Injection -) 5 mg IVPUSH Q4H PRN PRN Reason: HYPERTENSION Morphine Sulfate (Morphine Injection -) 2 mg IVPUSH Q3H PRN PRN Reason: PAIN Last Admin: 01/29/17 11:04 Dose: 2 mg Ondansetron HCl (Zofran Injection) 8 mg IVPUSH Q6H PRN PRN Reason: NAUSEA AND/OR VOMITING Last Admin: 01/30/17 05:50 Dose: 8 mg Pantoprazole Sodium (Protonix 40mg Ivpb (Pre-Docked)) 40 mg IVPB DAILY [facility] Last Admin: 01/31/17 10:11 Dose: 40 mg Gen: NAD at rest Heart: RRR Lung: decreased breath sounds at the bases Abd: soft, mild periumbilical tenderness, no rebound Ext: no edema Laboratory Results - last 24 hr 01/31/17 01/31/17 01/31/17 05:05 05:05 05:05 WBC 5.9 D RBC 3.60 Hgb 10.3 L Hct 31.3 L MCV 87.0 MCH 28.6 MCHC 32.8 RDW 13.5 Plt Count 336 MPV 7.1 L ESR Sodium 142 Potassium 3.9 Chloride 109 H Carbon Dioxide 28 Anion Gap 5 L BUN 5 L Creatinine 0.6 Creat Clearance w eGFR > 60 Random Glucose 105 Calcium 8.2 L Ferritin Total Bilirubin 0.3 D AST 15 ALT 34 D Alkaline Phosphatase 146 H C-Reactive Protein 7.2 H D Total Protein 5.2 L Albumin 2.5 L 01/31/17 01/31/17 05:05 10:15 WBC RBC Hgb Hct MCV MCH MCHC RDW Plt Count MPV ESR 53 H Sodium Potassium Chloride Carbon Dioxide Anion Gap BUN Creatinine Creat Clearance w eGFR Random Glucose Calcium Ferritin 151.578 Total Bilirubin AST ALT Alkaline Phosphatase C-Reactive Protein Total Protein Albumin ASSESSMENT AND PLAN: (?) Perforation Abdominal Pain r/o Diverticulitis HTN Hypothyroidism Mitral Valve Prolapse - For CT scan - ABX - f/u cultures - pain control - antiemetics - incentive spirometry - NPO - IVF - DVT prophylaxis Dr Gonzalez
--- NOTE | 2017-01-31 12:29 | PN ---
Physical Exam: SUBJECTIVE: Patient seen and examined at bedside in ICU. Pt feels better today. Had solid BM today and passing flatus. Decrease in abdominal pain. OBJECTIVE: Vital Signs Temperature 97.6 F 01/31/17 06:00 Pulse Rate 74 01/31/17 06:00 Respiratory Rate 18 01/31/17 06:00 Blood Pressure 156/100 01/31/17 06:00 O2 Sat by Pulse Oximetry (%) 99 01/30/17 19:38 GENERAL: The patient is awake, alert, and fully oriented, in no acute distress. HEAD: Normal with no signs of trauma. EYES: extraocular movements intact, sclera anicteric, conjunctiva clear. No ptosis. ENT: Ears normal, nares patent NECK: Trachea midline LUNGS: Breath sounds equal, clear to auscultation bilaterally, no wheezes HEART: Regular rate and rhythm, S1, S2 without murmur, rub or gallop. ABDOMEN: +mild periumbilical tenderness, Soft, nondistended, normoactive bowel sounds EXTREMITIES: warm, well-perfused NEUROLOGICAL: Cranial nerves II through XII grossly intact. Normal speech, normal gait. PSYCH: Normal mood, normal affect. SKIN: Warm, dry Laboratory Results - last 24 hr 01/31/17 01/31/17 01/31/17 05:05 05:05 05:05 WBC 5.9 D RBC 3.60 Hgb 10.3 L Hct 31.3 L MCV 87.0 MCH 28.6 MCHC 32.8 RDW 13.5 Plt Count 336 MPV 7.1 L ESR Sodium 142 Potassium 3.9 Chloride 109 H Carbon Dioxide 28 Anion Gap 5 L BUN 5 L Creatinine 0.6 Creat Clearance w eGFR > 60 Random Glucose 105 Calcium 8.2 L Ferritin Total Bilirubin 0.3 D AST 15 ALT 34 D Alkaline Phosphatase 146 H C-Reactive Protein 7.2 H D Total Protein 5.2 L Albumin 2.5 L 01/31/17 01/31/17 05:05 10:15 WBC RBC Hgb Hct MCV MCH MCHC RDW Plt Count MPV ESR 53 H Sodium Potassium Chloride Carbon Dioxide Anion Gap BUN Creatinine Creat Clearance w eGFR Random Glucose Calcium Ferritin 151.578 Total Bilirubin AST ALT Alkaline Phosphatase C-Reactive Protein Total Protein Albumin Active Medications Generic Name Dose Route Start Last Admin Trade Name Freq PRN Reason Stop Dose Admin Acetaminophen 1,000 mg 01/31/17 04:21 01/31/17 03:40 Ofirmev Injection - IVPB 01/31/17 22:22 1,000 mg Q6H PRN Administration FEVER OR PAIN Enoxaparin Sodium 40 mg 01/28/17 11:15 01/31/17 10:10 Lovenox - SQ 40 mg DAILY CRISTY Administration Metronidazole 100 mls @ 100 mls/hr 01/28/17 10:00 01/31/17 10:10 Flagyl 500mg Premixed Ivpb - IVPB 100 mls/hr Q8H-IV CRISTY Administration Levofloxacin 100 mls @ 100 mls/hr 01/28/17 10:00 01/31/17 10:10 Levaquin 500 Mg Premixed Ivpb - IVPB 100 mls/hr DAILY CRISTY Administration Dextrose/Sodium Chloride 1,000 mls @ 100 mls/hr 01/29/17 10:30 01/31/17 01:52 Dextrose 5%-Normal Saline+20 Meq Kcl - IV 100 mls/hr ASDIR CRISTY Administration Levothyroxine Sodium 50 mcg 01/30/17 00:23 01/31/17 10:14 Synthroid Injection - IVPUSH 50 mcg DAILY CRISTY Administration Metoprolol Tartrate 5 mg 01/28/17 03:09 Lopressor Injection - IVPUSH Q4H PRN HYPERTENSION Morphine Sulfate 2 mg 01/29/17 10:26 01/29/17 11:04 Morphine Injection - IVPUSH 2 mg Q3H PRN Administration PAIN Ondansetron HCl 8 mg 01/29/17 10:27 01/30/17 05:50 Zofran Injection IVPUSH 8 mg Q6H PRN Administration NAUSEA AND/OR VOMITING Pantoprazole Sodium 40 mg 01/28/17 10:00 01/31/17 10:11 Protonix 40mg Ivpb (Pre-Docked) IVPB 40 mg DAILY CRISTY Administration ASSESSMENT/PLAN: 51 y/o F with PMH of HTN, hypothyroidism presented to ER with 10/10 mid abdominal pain with sudden onset. Admitted to ICU for diverticulitis w/ perforation. Neuro: Mental status intact Abd: Abdominal pain likely secondary to diverticulitis w/perforation -CT enterography today -Surgery on board, ID on board, GI on board -c/w levaquin and flagyl -pain control with Ofirmev 1g IV q6h PRN, morphine 2mg IV q3h PRN -D5-1/2NS +20meq KCl @ 100 ml/hr -Protonix 40 mg IVPB qd -Zofran 8mg IV q6h PRN for nausea Endocrine Hypothyroidism -synthroid 50 mcg daily. Cardio HTN -c/w lopressor 5 mg IV q4h prn for htn Prophylaxis -DVT: lovenox 40 mg sq qd -GI: Protonix 40 mg IV qd FEN -D5-1/2 NS + 20meq KCl @ 100ml/hr -Monitor electrolytes, replete as necessary -NPO Dispo: continue to monitor in ICU Problem List - Problems (1) Abdominal pain Code(s): R10.9 - UNSPECIFIED ABDOMINAL PAIN Qualifiers: Abdominal location: periumbilical Qualified Code(s): R10.33 - Periumbilical pain (2) Acute diverticulitis Code(s): K57.92 - DVTRCLI OF INTEST, PART UNSP, W/O PERF OR ABSCESS W/O BLEED (3) Colitis Code(s): K52.9 - NONINFECTIVE GASTROENTERITIS AND COLITIS, UNSPECIFIED (4) Other specified hypothyroidism Code(s): E03.8 - OTHER SPECIFIED HYPOTHYROIDISM Visit type - Emergency Visit Emergency Visit: Yes ED Registration Date: 01/27/17 Care time: The patient presented to the Emergency Department on the above date and was hospitalized for further evaluation of their emergent condition. - New Patient This patient is new to me today: No - Critical Care Critical Care patient: Yes Total Critical Care Time (in minutes): 35 Critical Care Statement: The care of this patient involved high complexity decision making to prevent further life threatening deterioration of the patient 's condition and/or to evalute & treat vital organ system(s) failure or risk of failure.
--- NOTE | 2017-01-31 12:34 | PN ---
Progress Note (short form) - Note Progress Note: No acute events No pain +BM Vital Signs Period Temp Pulse Resp BP Sys/Coy Pulse Ox Last 24 Hr 97.6 F-98.8 F 62-85 16-22 121-156/51-100 99 Abd soft, NT, ND CBC, BMP 01/31/17 05:05 01/31/17 05:05 Clears Advance diet as tolerated Problem List - Problems (1) Abdominal pain Code(s): R10.9 - UNSPECIFIED ABDOMINAL PAIN Qualifiers: Qualified Code(s): R10.33 - Periumbilical pain
--- NOTE | 2017-01-31 17:23 | PN ---
GI Progress Note Subjective: GASTROENTEROLOGY FEELS EVEN BETTER THAN YESTERDAY CT SCAN SHOWS AIR AND FLUID COLLECTIONS IN ANTERIOR AND POSTERIOR RLQ ETIOLOGY IS UNCERTAIN NO FEVER, WBC COUNT NOW NORMAL - Objective Vital Signs: Vital Signs Temperature 97.6 F 01/31/17 06:00 Pulse Rate 74 01/31/17 06:00 Respiratory Rate 18 01/31/17 09:00 Blood Pressure 156/100 01/31/17 06:00 O2 Sat by Pulse Oximetry (%) 99 01/31/17 09:00 Constitutional: No Distress Eyes: Yes: Conjunctiva Clear HENT: Yes: Normocephalic Neck: Yes: Supple Cardiovascular: Yes: Regular Rate and Rhythm Respiratory: Yes: Regular Gastrointestinal Inspection: Yes: WNL ...Auscultate: Yes: Hypoactive Bowel Sounds ...Palpate: Yes: Soft Extremities: Yes: WNL Labs: CBC, BMP 01/31/17 05:05 01/31/17 05:05 - ....Imaging Cat Scan: Image Reviewed Problem List - Problems (1) Intra-abdominal abscess Assessment/Plan: NEW FINDINGS ON CT SCAN BUT CLINICALLY IMPROVED. AWAIT OK FROM SURGERY ON CLEAR LIQUID DIET. CONTINUE IV ABX, CBC,CRP. ETIOLOGY OF PERFORATION STILL IN QUESTION. Dr MAURICIO SUGGESTS POSSIBLE MECKEL'S DIVERTICULUM PERFORATION. CONTINUE PROTONIX. MECKEL SCAN??? WILL SPEAK WITH DR WHITAKER. Code(s): K65.1 - PERITONEAL ABSCESS (2) Perforation bowel Code(s): K63.1 - PERFORATION OF INTESTINE (NONTRAUMATIC) (3) Diverticulitis of colon with perforation Code(s): K57.20 - DVTRCLI OF LG INT W PERFORATION AND ABSCESS W/O BLEEDING (4) Enteritis Code(s): K52.9 - NONINFECTIVE GASTROENTERITIS AND COLITIS, UNSPECIFIED (5) Diverticulosis Code(s): K57.90 - DVRTCLOS OF INTEST, PART UNSP, W/O PERF OR ABSCESS W/O BLEED (6) Abdominal pain Code(s): R10.9 - UNSPECIFIED ABDOMINAL PAIN Qualifiers: Abdominal location: periumbilical Qualified Code(s): R10.33 - Periumbilical pain (7) Other specified hypothyroidism Code(s): E03.8 - OTHER SPECIFIED HYPOTHYROIDISM
[2017-02-01] MEDS: METRONIDAZOLE 500 MG PREMIXED 100 ML IVPB SCH ×3 (02:41→18:10)
[2017-02-01 05:56] LABS: MCHC 33.9 g/dl (32.0-36.0); MEAN CELL VOLUME 85.5 fl (80-96); MEAN PLT VOLUME 6.9 fl (7.5-11.1); PLATELET COUNT 327 K/MM3 (134-434); RDW 13.5 % (11.6-15.6); WHITE BLOOD COUNT 5.4 K/mm3 (4.0-10.0)
[2017-02-01 06:19] LABS: ALBUMIN 2.7 g/dl (3.4-5.0); ANION GAP 8 (8-16); BILIRUBIN,TOTAL 0.6 mg/dL (0.2-1.0); CALCIUM 8.7 mg/dL (8.5-10.1); CO2 27 mmol/L (21-32); CREATININE 0.5 mg/dL (0.55-1.02); GLUCOSE,RANDOM 97 mg/dL (74-106); SGOT/AST 19 U/L (15-37); SGPT/ALT 32 U/L (12-78); TOT PROT 5.4 g/dl (6.4-8.2)
[2017-02-01 06:20] LABS: ALK PHOS 141 U/L (45-117)
--- NOTE | 2017-02-01 08:49 | PN ---
Progress Note (short form) - Note Progress Note: feels well, some gas pain last night this am much less pain Vital Signs Period Temp Pulse Resp BP Sys/Coy Pulse Ox Last 24 Hr 98 F-98.6 F 58-87 17-22 138-150/78-103 99-99 cor-rrr lungs clear abd soft,NT mild discomfort below umbilicus ext no edema CBC, BMP 02/01/17 05:10 02/01/17 05:10 Microbiology 01/31/17 06:00 Stool Gram Stain - Final 01/28/17 15:10 Blood - Peripheral Venous Blood Culture - Preliminary NO GROWTH OBTAINED AFTER 72 HOURS, INCUBATION TO CONTINUE FOR 2 DAYS. 01/28/17 15:20 Blood - Peripheral Venous Blood Culture - Preliminary NO GROWTH OBTAINED AFTER 72 HOURS, INCUBATION TO CONTINUE FOR 2 DAYS. 01/31/17 06:00 Stool Clostridium difficile Antigen (CLAUDIA) - Final 01/31/17 06:00 Stool Clostridium difficile Toxin Assay - Final ct scan with 2 RLQ abscesses a/p intra-abdominal abscesses- continue levaquin/flagyl- no fever/normal WBC further management per GI and surgery
[2017-02-01] MEDS: LEVOFLOXACIN 500 MG IVPB 100 ML IVPB SCH (09:11)
[2017-02-01] MEDS: ENOXAPARIN NA (PORCINE) 40 MG/0.4 ML DISP.SYRIN SQ SCH (09:11)
[2017-02-01] MEDS: PANTOPRAZOLE SODIUM 40 MG/100 ML PRE-DOCKED IVPB SCH (09:11)
[2017-02-01] MEDS ORDERED: PT OWN MED DRAWER 7, Y5N ONE (09:18)
[2017-02-01] MEDS: LEVOTHYROXINE SODIUM 100 MCG VIAL IVPUSH SCH (09:23)
[2017-02-01] MEDS ORDERED: ACETAMINOPHEN 1000 MG/100 ML VIAL (NON FORMULARY) IVPB PRN (10:31)
--- NOTE | 2017-02-01 11:38 | PN ---
Progress Note, Physician Chief Complaint: Abdominal pain History of Present Illness: Mild discomfort this am in hypogastric/suprapubic region -CT abd shows two abscess -Meckel scan as suggested per GI and Radiology -labs improved -tolerating clear liquids, advance diet to full liquids. -acetaminophen IV for pain - Current Medication List Current Medications: Active Medications Acetaminophen (Ofirmev Injection -) 1,000 mg IVPB Q6H PRN PRN Reason: FEVER OR PAIN Stop: 02/02/17 04:32 Enoxaparin Sodium (Lovenox -) 40 mg SQ DAILY [facility] Last Admin: 02/01/17 09:11 Dose: 40 mg Metronidazole (Flagyl 500mg Premixed Ivpb -) 100 mls @ 100 mls/hr IVPB Q8H-IV [facility] Last Admin: 02/01/17 09:11 Dose: 100 mls/hr Levofloxacin (Levaquin 500 Mg Premixed Ivpb -) 100 mls @ 100 mls/hr IVPB DAILY [facility] Last Admin: 02/01/17 09:11 Dose: 100 mls/hr Levothyroxine Sodium (Synthroid Injection -) 50 mcg IVPUSH DAILY [facility] Last Admin: 02/01/17 09:23 Dose: 50 mcg Metoprolol Tartrate (Lopressor Injection -) 5 mg IVPUSH Q4H PRN PRN Reason: HYPERTENSION Morphine Sulfate (Morphine Injection -) 2 mg IVPUSH Q3H PRN PRN Reason: PAIN Last Admin: 01/29/17 11:04 Dose: 2 mg Ondansetron HCl (Zofran Injection) 8 mg IVPUSH Q6H PRN PRN Reason: NAUSEA AND/OR VOMITING Last Admin: 01/30/17 05:50 Dose: 8 mg Pantoprazole Sodium (Protonix 40mg Ivpb (Pre-Docked)) 40 mg IVPB DAILY [facility] Last Admin: 02/01/17 09:11 Dose: 40 mg - Objective Vital Signs: Vital Signs Temperature 98.2 F 02/01/17 06:00 Pulse Rate 77 02/01/17 06:00 Respiratory Rate 18 02/01/17 07:57 Blood Pressure 141/103 02/01/17 06:00 O2 Sat by Pulse Oximetry (%) 99 02/01/17 07:57 Constitutional: Yes: Well Nourished, No Distress, Calm Cardiovascular: Yes: Regular Rate and Rhythm Respiratory: Yes: Regular Gastrointestinal: Yes: Normal Bowel Sounds Musculoskeletal: Yes: WNL Extremities: Yes: WNL Edema: No Peripheral Pulses WNL: Yes Neurological: Yes: Alert, Oriented Psychiatric: Yes: Alert, Oriented Labs: CBC, BMP 02/01/17 05:10 02/01/17 05:10 Problem List - Problems (1) Abdominal pain Assessment/Plan: -much better today -pain management -IVF -IV abx -no vomiting today. Code(s): R10.9 - UNSPECIFIED ABDOMINAL PAIN Qualifiers: Abdominal location: periumbilical Qualified Code(s): R10.33 - Periumbilical pain (2) Acute diverticulitis Assessment/Plan: -seen by GI and surgery, no intervention recommended at this time. -CT abd showed two abscess -recommended Meckel scan Code(s): K57.92 - DVTRCLI OF INTEST, PART UNSP, W/O PERF OR ABSCESS W/O BLEED (3) Other specified hypothyroidism Assessment/Plan: on IV levothyroxine Code(s): E03.8 - OTHER SPECIFIED HYPOTHYROIDISM (4) Anemia Assessment/Plan: -check iron profile -stool OB -could be secondary to colon inflammation Code(s): D64.9 - ANEMIA, UNSPECIFIED Assessment/Plan . -IV abx -IVF -Pain management with IV acetaminophen and morphine as needed -Antiemetic-zofran increased -PPI -DVT prophylaxis -IV levothyroxine at 50 mcg -CT enterography two abscess -recommended Meckel scan as outpatient -seen by surgery and endocrinology -check stools and labs for anemia
--- NOTE | 2017-02-01 14:58 | PN ---
Progress Note (short form) - Note Progress Note: Pulm/CCM SUBJECTIVE: Patient seen and examined in the ICU. 24HR: CT with two LRQ abcesses afebrile, no complaints trying clears Vital Signs Temp 98.2 F 02/01/17 06:00 Pulse 77 02/01/17 06:00 Resp 18 02/01/17 07:57 BP 141/103 02/01/17 06:00 Pulse Ox 99 02/01/17 07:57 Intake & Output 01/31/17 02/01/17 02/01/17 23:59 11:59 23:59 Intake Total 300 1000 Balance 300 1000 Intake: IV 900 Dextrose 5%-Normal Saline 900 +20 Meq KCl - 1,000 ml @ 100 mls/hr IV ASDIR CRISTY Rx#:[id number] IVPB 100 Oral 300 Other: Voiding Method Toilet Toilet # Unmeasured Voids Void 2 3 CBC, BMP 02/01/17 05:10 02/01/17 05:10 Gen: INAD Heart: RRR Lung: decreased breath sounds at the bases Abd: soft, mild periumbilical tenderness, no rebound Ext: no edema Neuro: grossly intact ASSESSMENT AND PLAN: (?) Perforation Abdominal Pain r/o Diverticulitis HTN Hypothyroidism Mitral Valve Prolapse - Abcess management as per GI/Surgery - ABX - pain control - antiemetics - incentive spirometry - clears, advance as tolerated - DVT prophylaxis - Ok for med surg floor Jose Antonio Patel ACNP [id number]
[2017-02-01 18:45] LABS: SERUM IRON 23 ug/dL (27-159); TOTAL IRON BINDING CAPACITY 186 ug/dL (250-450); UIBC 163 ug/dL (131-425)
[2017-02-02] MEDS: METRONIDAZOLE 500 MG PREMIXED 100 ML IVPB SCH ×3 (01:10→17:05)
[2017-02-02 06:18] LABS: MCH 28.7 pg (25.7-33.7); MCHC 33.4 g/dl (32.0-36.0); MEAN CELL VOLUME 85.9 fl (80-96); PLATELET COUNT 367 K/MM3 (134-434); RDW 13.5 % (11.6-15.6); WHITE BLOOD COUNT 5.1 K/mm3 (4.0-10.0)
[2017-02-02 06:40] LABS: ANION GAP 7 (8-16); CALCIUM 8.5 mg/dL (8.5-10.1); CO2 30 mmol/L (21-32); CREATININE 0.6 mg/dL (0.55-1.02); GLUCOSE,RANDOM 93 mg/dL (74-106)
[2017-02-02] MEDS: LEVOFLOXACIN 500 MG IVPB 100 ML IVPB SCH (09:01)
[2017-02-02] MEDS: LEVOTHYROXINE SODIUM 100 MCG VIAL IVPUSH SCH (09:01)
[2017-02-02] MEDS: ENOXAPARIN NA (PORCINE) 40 MG/0.4 ML DISP.SYRIN SQ SCH (09:02)
[2017-02-02] MEDS: PANTOPRAZOLE SODIUM 40 MG/100 ML PRE-DOCKED IVPB SCH (09:02)
--- NOTE | 2017-02-02 09:35 | PN ---
Progress Note, Physician Chief Complaint: Abdominal pain History of Present Illness: Mild discomfort this am in hypogastric/suprapubic region -CT abd shows two abscess -Meckel scan as suggested per GI and Radiology -labs improved -tolerating clear liquids, advance diet to full liquids. -acetaminophen IV for pain - Current Medication List Current Medications: Active Medications Enoxaparin Sodium (Lovenox -) 40 mg SQ DAILY [facility] Last Admin: 02/02/17 09:02 Dose: 40 mg Metronidazole (Flagyl 500mg Premixed Ivpb -) 100 mls @ 100 mls/hr IVPB Q8H-IV [facility] Last Admin: 02/02/17 09:02 Dose: 100 mls/hr Levofloxacin (Levaquin 500 Mg Premixed Ivpb -) 100 mls @ 100 mls/hr IVPB DAILY [facility] Last Admin: 02/02/17 09:01 Dose: 100 mls/hr Levothyroxine Sodium (Synthroid Injection -) 50 mcg IVPUSH DAILY [facility] Last Admin: 02/02/17 09:01 Dose: 50 mcg Metoprolol Tartrate (Lopressor Injection -) 5 mg IVPUSH Q4H PRN PRN Reason: HYPERTENSION Morphine Sulfate (Morphine Injection -) 2 mg IVPUSH Q3H PRN PRN Reason: PAIN Last Admin: 01/29/17 11:04 Dose: 2 mg Ondansetron HCl (Zofran Injection) 8 mg IVPUSH Q6H PRN PRN Reason: NAUSEA AND/OR VOMITING Last Admin: 01/30/17 05:50 Dose: 8 mg Pantoprazole Sodium (Protonix 40mg Ivpb (Pre-Docked)) 40 mg IVPB DAILY [facility] Last Admin: 02/02/17 09:02 Dose: 40 mg - Objective Vital Signs: Vital Signs Temperature 98.4 F 02/02/17 07:00 Pulse Rate 666 H 02/02/17 07:00 Respiratory Rate 20 02/02/17 07:00 Blood Pressure 131/88 02/02/17 07:00 O2 Sat by Pulse Oximetry (%) 99 02/01/17 21:00 Constitutional: Yes: Well Nourished, No Distress, Calm Cardiovascular: Yes: Regular Rate and Rhythm Respiratory: Yes: Regular Gastrointestinal: Yes: Normal Bowel Sounds Musculoskeletal: Yes: WNL Extremities: Yes: WNL Edema: No Peripheral Pulses WNL: Yes Neurological: Yes: Alert, Oriented Psychiatric: Yes: Alert, Oriented Labs: CBC, BMP 02/02/17 05:20 02/02/17 05:20 Problem List - Problems (1) Abdominal pain Assessment/Plan: -much better today -pain management -IVF -IV abx -no vomiting today. Code(s): R10.9 - UNSPECIFIED ABDOMINAL PAIN Qualifiers: Abdominal location: periumbilical Qualified Code(s): R10.33 - Periumbilical pain (2) Acute diverticulitis Assessment/Plan: -seen by GI and surgery, no intervention recommended at this time. -CT abd showed two abscess -recommended Meckel scan Code(s): K57.92 - DVTRCLI OF INTEST, PART UNSP, W/O PERF OR ABSCESS W/O BLEED (3) Other specified hypothyroidism Assessment/Plan: on IV levothyroxine Code(s): E03.8 - OTHER SPECIFIED HYPOTHYROIDISM (4) Anemia Assessment/Plan: -check iron profile -stool OB -could be secondary to colon inflammation Code(s): D64.9 - ANEMIA, UNSPECIFIED Assessment/Plan . -IV abx -IVF -Pain management with IV acetaminophen and morphine as needed -Antiemetic-zofran increased -PPI -DVT prophylaxis -IV levothyroxine at 50 mcg -CT enterography two abscess -recommended Meckel scan as outpatient -seen by surgery and endocrinology -Iron deficiency, venofer 200 mg once -check stools OB -Meckel's scan in AM
[2017-02-02] MEDS ORDERED: IRON SUCROSE INJECTION 200 MG in SODIUM CHLORIDE 100 ML IVPB ONE (10:15)
[2017-02-02] MEDS ORDERED: ATENOLOL 25 MG TABLET (FP) PO SCH (12:18)
--- NOTE | 2017-02-02 13:38 | PN ---
Progress Note (short form) - Note Progress Note: Pulm/CCM SUBJECTIVE: Patient seen and examined in the ICU. 24HR: No new events, diet progressing in for floor bed awaiting scan in am Vital Signs Temp 98.4 F 02/02/17 07:00 Pulse 88 02/02/17 12:26 Resp 20 02/02/17 12:26 BP 154/88 02/02/17 12:26 Pulse Ox 99 02/01/17 21:00 Intake & Output 02/01/17 02/02/17 02/02/17 23:59 11:59 23:59 Intake Total 400 Balance 400 Weight 109.951 kg Intake: IV 400 Dextrose 5%-Normal Saline 400 +20 Meq KCl - 1,000 ml @ 100 mls/hr IV ASDIR CRISTY Rx#:[id number] Other: Voiding Method Toilet Toilet # Unmeasured Voids Void 2 Bowel Movement Yes: diarrhea Weight Measurement Method [facility] CBC, BMP 02/02/17 05:20 02/02/17 05:20 Gen: INAD Heart: RRR Lung: decreased breath sounds at the bases Abd: soft, decreased pain Ext: no edema Neuro: grossly intact ASSESSMENT AND PLAN: (?) Perforation , now with ? abcess x 2 Abdominal Pain r/o Diverticulitis HTN Hypothyroidism Mitral Valve Prolapse - Abcess management as per GI/Surgery, for Gladis scan in AM - ABX as per ID - pain control - antiemetics - incentive spirometry - clears, advance as tolerated - DVT prophylaxis - OOB at tolerated - Ok for med surg floor Jose Antonio Patel ACNP [phone]
[2017-02-02] MEDS ORDERED: METOPROLOL TARTRATE 25 MG TABLET (FP) PO SCH (14:00)
--- NOTE | 2017-02-02 16:23 | PN ---
GI Progress Note Subjective: GASTROENTEROLOGY CONTINUED IMPROVEMENT CT SCAN REVIEWED WITH DR MAURICIO TODAY - Objective Vital Signs: Vital Signs Temperature 98.2 F 02/02/17 14:00 Pulse Rate 88 02/02/17 16:00 Respiratory Rate 23 02/02/17 16:00 Blood Pressure 145/94 02/02/17 16:00 O2 Sat by Pulse Oximetry (%) 99 02/01/17 21:00 Constitutional: No Distress, Calm Eyes: Yes: Conjunctiva Clear HENT: Yes: Normocephalic Cardiovascular: Yes: Regular Rate and Rhythm Respiratory: Yes: Regular Gastrointestinal Inspection: Yes: WNL ...Auscultate: Yes: Normoactive Bowel Sounds ...Palpate: Yes: Soft Extremities: Yes: WNL Labs: CBC, BMP 02/02/17 05:20 02/02/17 05:20 Problem List - Problems (1) Intra-abdominal abscess Assessment/Plan: CONTINUED IMPROVEMENT SEEN DIET PER SURGERY QUESTION STILL EXISTS TO ETIOLOGY: DIVERTICULITIS OF SB DIVERTICULOSIS, DIVERTICILITIS OR PERFORATION OF MECKEL'S DIVERTICULUM, SIGMOID DIVERTICULITIS WITH PERFORATION. WOULD SUGGEST CONTINUE THERAPY OUTLINED, MECKEL'S SCAN IN 4 TO 6 WEEKS NOT TOMORROW THERE IS TOO MUCH INFLAMMATION IN THIS AREA FOR TEST TO BE ACCURATE. SURGICAL FOLLOW OUTPATIENT TO DECIDE THE NEXT STEP AFTER SCAN IS COMPLETE. GELA LAMBERT MD Code(s): K65.1 - PERITONEAL ABSCESS (2) Perforation bowel Code(s): K63.1 - PERFORATION OF INTESTINE (NONTRAUMATIC) (3) Diverticulitis of colon with perforation Code(s): K57.20 - DVTRCLI OF LG INT W PERFORATION AND ABSCESS W/O BLEEDING (4) Enteritis Code(s): K52.9 - NONINFECTIVE GASTROENTERITIS AND COLITIS, UNSPECIFIED (5) Diverticulosis Code(s): K57.90 - DVRTCLOS OF INTEST, PART UNSP, W/O PERF OR ABSCESS W/O BLEED (6) Abdominal pain Code(s): R10.9 - UNSPECIFIED ABDOMINAL PAIN Qualifiers: Abdominal location: periumbilical Qualified Code(s): R10.33 - Periumbilical pain (7) Other specified hypothyroidism Code(s): E03.8 - OTHER SPECIFIED HYPOTHYROIDISM
[2017-02-02] MEDS: PANTOPRAZOLE 40 MG TABLET (FP) PO SCH (21:38)
[2017-02-03] MEDS: METRONIDAZOLE 500 MG PREMIXED 100 ML IVPB SCH ×2 (02:00→09:16)
[2017-02-03 06:22] LABS: BASOPHIL 0.5 % (0-2.0); EOSINOPHIL 2.7 % (0-4.5); MCH 28.5 pg (25.7-33.7); MCHC 33.5 g/dl (32.0-36.0); MEAN CELL VOLUME 85.2 fl (80-96); MEAN PLT VOLUME 6.9 fl (7.5-11.1); NEUTROPHILS 63.5 % (42.8-82.8); PLATELET COUNT 344 K/MM3 (134-434); RDW 13.7 % (11.6-15.6); WHITE BLOOD COUNT 5.7 K/mm3 (4.0-10.0)
[2017-02-03] MEDS ORDERED: PT OWN MED DRAWER 7, Y5N ONE ×2 (06:28→09:10)
[2017-02-03 06:55] LABS: ALBUMIN 2.9 g/dl (3.4-5.0); ANION GAP 6 (8-16); CALCIUM 8.6 mg/dL (8.5-10.1); CO2 30 mmol/L (21-32); GLUCOSE,RANDOM 89 mg/dL (74-106)
[2017-02-03 06:59] LABS: ALK PHOS 126 U/L (45-117); BILIRUBIN,TOTAL 0.3 mg/dL (0.2-1.0); CREATININE 0.6 mg/dL (0.55-1.02); SGOT/AST 21 U/L (15-37); SGPT/ALT 31 U/L (12-78); TOT PROT 5.7 g/dl (6.4-8.2)
[2017-02-03] MEDS ORDERED: LEVOTHYROXINE NA 112 MCG TABLET (FP) PO SCH (07:00)
--- NOTE | 2017-02-03 08:55 | PN ---
Progress Note, Physician History of Present Illness: feels better no cp or sob - Current Medication List Current Medications: Active Medications Atenolol (Tenormin -) 25 mg PO DAILY [facility] Enoxaparin Sodium (Lovenox -) 40 mg SQ DAILY [facility] Last Admin: 02/02/17 09:02 Dose: 40 mg Metronidazole (Flagyl 500mg Premixed Ivpb -) 100 mls @ 100 mls/hr IVPB Q8H-IV [facility] Last Admin: 02/03/17 02:00 Dose: 100 mls/hr Levofloxacin (Levaquin 500 Mg Premixed Ivpb -) 100 mls @ 100 mls/hr IVPB DAILY [facility] Last Admin: 02/02/17 09:01 Dose: 100 mls/hr Levothyroxine Sodium (Synthroid -) 112 mcg PO DAILY@0700 [facility] Last Admin: 02/03/17 07:03 Dose: 112 mcg Ondansetron HCl (Zofran Injection) 8 mg IVPUSH Q6H PRN PRN Reason: NAUSEA AND/OR VOMITING Last Admin: 01/30/17 05:50 Dose: 8 mg Pantoprazole Sodium (Protonix -) 40 mg PO BID [facility] Last Admin: 02/02/17 21:38 Dose: 40 mg - Objective Vital Signs: Vital Signs Temperature 98.2 F 02/03/17 06:00 Pulse Rate 64 02/03/17 06:00 Respiratory Rate 18 02/03/17 06:00 Blood Pressure 158/88 02/03/17 06:00 O2 Sat by Pulse Oximetry (%) 99 02/02/17 21:00 Cardiovascular: Yes: Regular Rate and Rhythm Respiratory: Yes: Regular, CTA Bilaterally Gastrointestinal: Yes: Normal Bowel Sounds, Soft. No: Tenderness Labs: CBC, BMP 02/03/17 05:15 02/03/17 05:15 Assessment/Plan - Problems (1) Abdominal pain Assessment/Plan: -much better today -pain free -IVF -IV abx -no vomiting today. Code(s): R10.9 - UNSPECIFIED ABDOMINAL PAIN Qualifiers: Abdominal location: periumbilical Qualified Code(s): R10.33 - Periumbilical pain (2) Acute diverticulitis Assessment/Plan: -seen by GI and surgery, no intervention recommended at this time. -CT abd showed two abscess -recommended Meckel scan in 4- 6 weeks -id follow up Code(s): K57.92 - DVTRCLI OF INTEST, PART UNSP, W/O PERF OR ABSCESS W/O BLEED (3) Other specified hypothyroidism Assessment/Plan: on levothyroxine Code(s): E03.8 - OTHER SPECIFIED HYPOTHYROIDISM (4) Anemia Assessment/Plan: -Iron deficiency, venofer 200 mg once -check stools OB -could be secondary to colon inflammation -gi w/u per gi Code(s): D64.9 - ANEMIA, UNSPECIFIED Assessment/Plan . -IV abx -IVF -PPI -DVT prophylaxis -CT enterography two abscess -recommended Meckel scan as outpatient -seen by surgery and endocrinology
[2017-02-03] MEDS: ENOXAPARIN NA (PORCINE) 40 MG/0.4 ML DISP.SYRIN SQ SCH (09:14)
[2017-02-03] MEDS: PANTOPRAZOLE 40 MG TABLET (FP) PO SCH (09:15)
[2017-02-03] MEDS: LEVOFLOXACIN 500 MG IVPB 100 ML IVPB SCH (09:16)
[2017-02-03] MEDS ORDERED: ATENOLOL 25 MG TABLET (FP) PO SCH (10:00)
[2017-02-03 10:25] VITALS: TEMP 97.6
--- NOTE | 2017-02-03 11:01 | PN ---
Progress Note, Physician Chief Complaint: ID Levofloxacin and metronidazole Feels well No abd pain - Current Medication List Current Medications: Active Medications Atenolol (Tenormin -) 25 mg PO DAILY [facility] Last Admin: 02/03/17 09:15 Dose: 25 mg Enoxaparin Sodium (Lovenox -) 40 mg SQ DAILY [facility] Last Admin: 02/03/17 09:14 Dose: 40 mg Metronidazole (Flagyl 500mg Premixed Ivpb -) 100 mls @ 100 mls/hr IVPB Q8H-IV [facility] Last Admin: 02/03/17 09:16 Dose: 100 mls/hr Levofloxacin (Levaquin 500 Mg Premixed Ivpb -) 100 mls @ 100 mls/hr IVPB DAILY [facility] Last Admin: 02/03/17 09:16 Dose: 100 mls/hr Levothyroxine Sodium (Synthroid -) 112 mcg PO DAILY@0700 [facility] Last Admin: 02/03/17 07:03 Dose: 112 mcg Ondansetron HCl (Zofran Injection) 8 mg IVPUSH Q6H PRN PRN Reason: NAUSEA AND/OR VOMITING Last Admin: 01/30/17 05:50 Dose: 8 mg Pantoprazole Sodium (Protonix -) 40 mg PO BID [facility] Last Admin: 02/03/17 09:15 Dose: 40 mg - Objective Vital Signs: Vital Signs Temperature 97.6 F 02/03/17 10:00 Pulse Rate 71 02/03/17 10:00 Respiratory Rate 18 02/03/17 10:00 Blood Pressure 126/94 02/03/17 10:00 O2 Sat by Pulse Oximetry (%) 99 02/03/17 09:00 Constitutional: Yes: Well Nourished, No Distress HENT: Yes: WNL, Atraumatic Neck: Yes: WNL, Supple Cardiovascular: Yes: Regular Rate and Rhythm, S1, S2. No: Murmur Respiratory: Yes: WNL, Regular, CTA Bilaterally Gastrointestinal: Yes: WNL, Normal Bowel Sounds, Soft, Tenderness Edema: No Labs: CBC, BMP 02/03/17 05:15 02/03/17 05:15 Assessment/Plan Microbiology 01/28/17 15:20 Blood - Peripheral Venous Blood Culture - Final NO GROWTH AFTER 5 DAYS INCUBATION 01/28/17 15:10 Blood - Peripheral Venous Blood Culture - Final NO GROWTH AFTER 5 DAYS INCUBATION Laboratory Tests 01/31/17 02/01/17 02/03/17 05:05 05:10 05:15 WBC 5.7 Hgb 11.3 Hct 33.9 Plt Count 344 ESR 53 H C-Reactive Protein 3.9 H D Assessment Diverticulitis improving Plan Antibiotics can be continued as oral equivalents Ap HARTMAN
--- NOTE | 2017-02-03 12:18 | PN ---
Teaching Attending Note Name of Resident: Caleb Bruno ATTENDING PHYSICIAN STATEMENT I saw and evaluated the patient. I reviewed the resident's note and discussed the case with the resident. I agree with the resident's findings and plan as documented. SUBJECTIVE: Patient seen and examined in the ICU. Abdominal pain improved. Tolerating PO intake. Intake & Output 01/31/17 02/01/17 02/02/17 02/03/17 23:59 23:59 23:59 23:59 Intake Total 1600 1400 1000 150 Output Total 125 Balance 1600 1400 875 150 Weight 242 lb 6.4 oz 242 lb 6.4 oz Last Vital Signs Temp Pulse Resp BP Pulse Ox 97.6 F 71 18 126/94 99 02/03/17 10:00 02/03/17 10:00 02/03/17 10:00 02/03/17 10:00 02/03/17 09:00 Active Medications Atenolol (Tenormin -) 25 mg PO DAILY [facility] Last Admin: 02/03/17 09:15 Dose: 25 mg Enoxaparin Sodium (Lovenox -) 40 mg SQ DAILY [facility] Last Admin: 02/03/17 09:14 Dose: 40 mg Metronidazole (Flagyl 500mg Premixed Ivpb -) 100 mls @ 100 mls/hr IVPB Q8H-IV [facility] Last Admin: 02/03/17 09:16 Dose: 100 mls/hr Levofloxacin (Levaquin 500 Mg Premixed Ivpb -) 100 mls @ 100 mls/hr IVPB DAILY [facility] Last Admin: 02/03/17 09:16 Dose: 100 mls/hr Levothyroxine Sodium (Synthroid -) 112 mcg PO DAILY@0700 [facility] Last Admin: 02/03/17 07:03 Dose: 112 mcg Ondansetron HCl (Zofran Injection) 8 mg IVPUSH Q6H PRN PRN Reason: NAUSEA AND/OR VOMITING Last Admin: 01/30/17 05:50 Dose: 8 mg Pantoprazole Sodium (Protonix -) 40 mg PO BID [facility] Last Admin: 02/03/17 09:15 Dose: 40 mg Gen: NAD at rest Heart: RRR Lung: decreased breath sounds at the bases Abd: soft, non-tenderness, no rebound Ext: no edema Laboratory Results - last 24 hr 02/03/17 02/03/17 05:15 05:15 WBC 5.7 RBC 3.98 Hgb 11.3 Hct 33.9 MCV 85.2 MCH 28.5 MCHC 33.5 RDW 13.7 Plt Count 344 MPV 6.9 L Neutrophils % 63.5 D Lymphocytes % 26.0 D Monocytes % 7.3 D Eosinophils % 2.7 Basophils % 0.5 Sodium 142 Potassium 4.1 Chloride 106 Carbon Dioxide 30 Anion Gap 6 L BUN 6 L D Creatinine 0.6 Creat Clearance w eGFR > 60 Random Glucose 89 Calcium 8.6 Total Bilirubin 0.3 D AST 21 ALT 31 Alkaline Phosphatase 126 H Total Protein 5.7 L Albumin 2.9 L ASSESSMENT AND PLAN: (?) Perforation Abdominal Pain r/o Diverticulitis HTN Hypothyroidism Mitral Valve Prolapse - PO as tolerated - incentive spirometry - DVT prophylaxis - D/C planning Dr Gonzalez
[2017-02-03 14:05] VITALS: BP 129/88; PULSE 78
--- NOTE | 2017-02-03 15:14 | PN ---
Physical Exam: SUBJECTIVE: Patient seen and examined at bedside in ICU. Belching, passing gas, bowel movement is normal, tolerating diet. OBJECTIVE: Vital Signs Period Temp Pulse Resp BP Sys/Coy Pulse Ox Last 24 Hr 97.6 F-98.6 F 60-89 16-23 124-158/74-94 99-99 GENERAL: The patient is awake, alert, and fully oriented, in no acute distress. HEAD: Normal with no signs of trauma. EYES: extraocular movements intact, sclera anicteric, conjunctiva clear. No ptosis. ENT: Ears normal, nares patent NECK: Trachea midline LUNGS: Breath sounds equal, clear to auscultation bilaterally, no wheezes HEART: Regular rate and rhythm, S1, S2 without murmur, rub or gallop. ABDOMEN: +mild periumbilical tenderness, Soft, nondistended, normoactive bowel sounds EXTREMITIES: warm, well-perfused NEUROLOGICAL: Cranial nerves II through XII grossly intact. Normal speech, normal gait. PSYCH: Normal mood, normal affect. SKIN: Warm, dry Laboratory Results - last 24 hr 02/03/17 02/03/17 05:15 05:15 WBC 5.7 RBC 3.98 Hgb 11.3 Hct 33.9 MCV 85.2 MCH 28.5 MCHC 33.5 RDW 13.7 Plt Count 344 MPV 6.9 L Neutrophils % 63.5 D Lymphocytes % 26.0 D Monocytes % 7.3 D Eosinophils % 2.7 Basophils % 0.5 Sodium 142 Potassium 4.1 Chloride 106 Carbon Dioxide 30 Anion Gap 6 L BUN 6 L D Creatinine 0.6 Creat Clearance w eGFR > 60 Random Glucose 89 Calcium 8.6 Total Bilirubin 0.3 D AST 21 ALT 31 Alkaline Phosphatase 126 H Total Protein 5.7 L Albumin 2.9 L ASSESSMENT/PLAN: 51 y/o F with PMH of HTN, hypothyroidism presented to ER with 10/10 mid abdominal pain with sudden onset. Admitted to ICU for diverticulitis w/ perforation. Neuro: Mental status intact Abd: Abdominal pain likely secondary to diverticulitis vs. meckel diverticulum - resolved - Meckel diverticulum scan as outpatient Endocrine Hypothyroidism -synthroid 50 mcg daily. Cardio HTN -c/w lopressor 5 mg IV q4h prn for htn Dispo - discharge Visit type - Emergency Visit Emergency Visit: No - New Patient This patient is new to me today: Yes Date on this admission: 02/03/17 - Critical Care Critical Care patient: Yes Total Critical Care Time (in minutes): 34 Critical Care Statement: The care of this patient involved high complexity decision making to prevent further life threatening deterioration of the patient 's condition and/or to evalute & treat vital organ system(s) failure or risk of failure.
--- NOTE | 2017-02-03 16:12 | PN ---
Progress Note (short form) - Note Progress Note: No acute events No pain Tolerating diet Vital Signs Period Temp Pulse Resp BP Sys/Coy Pulse Ox Last 24 Hr 97.6 F-98.6 F 60-89 16-20 124-158/74-94 99-99 Abd soft, NT CBC, BMP 02/03/17 05:15 02/03/17 05:15 Diet Meckel's scan as an outpatient F/U in office after scan [phone] Problem List - Problems (1) Abdominal pain Code(s): R10.9 - UNSPECIFIED ABDOMINAL PAIN Qualifiers: Abdominal location: periumbilical Qualified Code(s): R10.33 - Periumbilical pain
== END 2017-02-03 14:06 | disposition home or self-care (01) | DRG 392 ==
LOC: JER 17:03 → JICU 21:55 → JER 22:49
PROVIDERS: ADMIT Family Medicine; ATTEND Family Medicine
DX: K57.20 Diverticulitis of large intestine with perforation and abscess without bleeding (principal); Z68.41 Body mass index [BMI] 40.0-44.9, adult; E03.9 Hypothyroidism, unspecified; I10 Essential (primary) hypertension; I34.1 Nonrheumatic mitral (valve) prolapse; E06.3 Autoimmune thyroiditis; E66.9 Obesity, unspecified; Z71.3 Dietary counseling and surveillance; K52.9 Noninfective gastroenteritis and colitis, unspecified; D64.9 Anemia, unspecified
CPT/HCPCS: 36415; 71020-TC; 74177-TC; 80048; 80053; 81003; 82728; 83540; 83550; 83605; 83690; 84439; 84443; 84703; 85025; 85027; 85651; 86140; 87040; 87045; 87046; 87205; 87324; 87449; 93005; 93010; 94010; 99283-25; J1756

== ENCOUNTER 2022-08-23 07:30 | Day surgery (SDC) | payer BC ==
[2022-08-20 19:37] VITALS: BMI 39.1
[2022-08-23] MEDS ORDERED: DEXAMETHASONE SOD PHOSPHATE 4 MG/1 ML VIAL ONE ×2 (08:44→10:26)
[2022-08-23] MEDS ORDERED: LIDOCAINE HCL 1%, 10 MG/ML (20ML VIAL) ONE (08:44)
[2022-08-23] MEDS ORDERED: BUPIVACAINE HCL 100 ML ONE (08:44)
[2022-08-23] MEDS ORDERED: BENZOIN/ALOE VERA/STORAX/TOLU 58 ML BOTTLE ONE (08:44)
[2022-08-23] MEDS ORDERED: MIDAZOLAM HCL 2 MG/2 ML SINGLE DOSE VIAL ONE (09:04)
[2022-08-23] MEDS ORDERED: PROPOFOL 40 ML ONE (09:04)
[2022-08-23] MEDS ORDERED: GENTAMICIN SO4 80 MG/2 ML VIAL ONE (09:06)
[2022-08-23] MEDS ORDERED: ONDANSETRON 4 MG/2 ML VIAL ONE (10:26)
[2022-08-23] MEDS ORDERED: ceFAZolin SODIUM 1 GM VIAL ONE (10:26)
[2022-08-23] MEDS ORDERED: oxyCODONE HCL 5 MG TABLET PO PRN (10:34)
[2022-08-23] MEDS ORDERED: ONDANSETRON 4 MG/2 ML VIAL IVPUSH PRN (10:34)
[2022-08-23] MEDS ORDERED: ACETAMINOPHEN 1000 MG/100 ML BAG IVPB ONE (10:34)
[2022-08-23] MEDS ORDERED: ACETAMINOPHEN INJECTION 100 ML IVPB ONE (10:40)
[2022-08-23] MEDS ORDERED: LACTATED RINGERS SOLUTION 1,000 ML IV SCH (10:45)
[2022-08-23] MEDS ORDERED: FENTANYL CITRATE/PF 50 MCG/ML VIAL ONE ×2 (10:58→11:18)
[2022-08-23 11:58] VITALS: TEMP 97.9
[2022-08-23 12:44] VITALS: BP 125/74; PULSE 68; RESP 16
== END 2022-08-23 12:23 | disposition home or self-care (01) ==
LOC: FASU 07:30
PROVIDERS: ATTEND Podiatrist Foot Surgery
PROC: 0SRP0JZ Replacement of Right Toe Phalangeal Joint with Synthetic Substitute, Open Approach (ICD-10-PCS; 2022-08-23)
PROC: 0QSN04Z Reposition Right Metatarsal with Internal Fixation Device, Open Approach (ICD-10-PCS; principal; 2022-08-23 09:37)
DX: M20.11 Hallux valgus (acquired), right foot (principal); M21.611 Bunion of right foot; M20.41 Other hammer toe(s) (acquired), right foot
CPT/HCPCS: 73630-TC-RT-FY; 88305-TC; 88311-TC; 94760